=== PATIENT | female | born 1995 | race Caucasian/White ===

== ENCOUNTER 2019-08-04 18:07 | Outpatient (REF) | payer OTHER, SELFPAY ==
[2019-08-04 18:56] LABS: HCG Quant, Pregnancy 5 mIU/mL (1-3); TSH (W/Ref FT4) 1.92 uIU/mL (0.36-3.74)
[2019-08-06 11:33] LABS: Prolactin 65.3 ng/mL (See Table)
== END 2019-08-04 18:27 ==
LOC: LBN 18:07
PROVIDERS: Visit Provider Nurse Practitioner Family
DX: N92.6 Irregular menstruation, unspecified (principal)
CPT/HCPCS: 84146; 84443; 84702

== ENCOUNTER 2020-01-02 02:12 | Outpatient (CLI) | payer OTHER, SELFPAY ==
[2020-01-02 11:00] LABS: Kit/Specimen SENT
[2020-01-02 11:11] LABS: Abs Immature Grans 0.06 10^3/uL (0.0-0.06); Absolute Basophil Count 0.05 10^3/uL (0.0-0.2); Absolute Eosinophil Count 0.06 10^3/uL (0.0-0.7); Absolute Monocyte Count 0.48 10^3/uL (0.1-0.8); Absolute Neutrophil Count 8.41 10^3/uL (1.2-6.7); Basophils % 0.5; Eosinophils % 0.6; HGB 12.5 g/dL (11.2-15.7); Immature Grans % 0.6; Lymphocytes % 14.2; MCH 29.4 pg (27.0-33.0); MCHC 33.8 % (32.0-36.0); MCV 87.1 fL (80-95); MPV 9.9 fL (8.0-11.0); Monocytes % 4.5; Neutrophils % 79.6; Nucleated RBC 0 %; Platelet Count 262 10^3/uL (130-400); RBC 4.25 10^6/uL (3.93-5.22); RDW 12.9 % (11.7-14.6); RDW-SD 40.1 fL; WBC 10.56 10^3/uL (4.4-10.8)
[2020-01-02 12:27] LABS: TSH (W/Ref FT4) 2.27 uIU/mL (0.36-3.74)
[2020-01-03 14:29] LABS: Syphilis Total Ab w/Reflex Nonreactive (Nonreactive)
[2020-01-05 10:01] LABS: Hepatitis B Surface Ag Negative (Negative)
[2020-01-05 10:24] LABS: Varicella IgG Antibody Positive (See Note)
[2020-01-05 10:28] LABS: Rubella IgG Ab (UVM) Positive (See Note)
[2020-01-05 10:35] LABS: Hepatitis C Ab w Rflx HCV PCR Negative (Negative)
[2020-01-05 11:12] LABS: HIV-1/2 Ag & Ab Screen Negative (Negative)
[2020-01-09 18:35] LABS: Result Summary NEGATIVE; Specimen WB Whole Blood
[2020-01-09 18:41] LABS: Specimen WB Whole Blood
== END 2020-01-02 02:32 ==
PROVIDERS: Visit Provider Advanced Practice Midwife
DX: Z34.91 Encounter for supervision of normal pregnancy, unspecified, first trimester (principal); Z36.89 Encounter for other specified antenatal screening; Z11.59 Encounter for screening for other viral diseases; Z11.4 Encounter for screening for human immunodeficiency virus [HIV]; Z01.84 Encounter for antibody response examination; E22.1 Hyperprolactinemia
CPT/HCPCS: 36415; 81329; 86787; 86803; 86850; 86900; 86901; 87340; 87389; 81220; 84443; 85025; 86762; 86780

== ENCOUNTER 2020-01-02 12:11 | Outpatient (REF) | payer OTHER, SELFPAY ==
[2020-01-02 13:47] LABS: Tricyclic Antidepressants Negative (Negative)
[2020-01-02 13:54] LABS: *AMPHETAMINES SCREEN URINE Negative (Negative); *BARBITURATES SCREEN URINE Negative (Negative); *BENZODIAZEPINES SCREEN URINE Negative (Negative); Cannabinoids THC Negative (Negative); Cocaine Screen,Urine Negative (Negative); METHADONE URINE SCREEN Negative (Negative); OPIATES URINE SCREEN Negative (Negative)
[2020-01-05 15:09] LABS: Chlamydia Result Negative (Negative); GC Result Negative (Negative)
[2020-01-08 10:44] LABS: Buprenorphine Negative; Norbuprenorphine Negative
== END 2020-01-02 12:31 ==
LOC: LBN 12:11
PROVIDERS: Visit Provider Advanced Practice Midwife
DX: Z34.91 Encounter for supervision of normal pregnancy, unspecified, first trimester (principal); Z11.3 Encounter for screening for infections with a predominantly sexual mode of transmission
CPT/HCPCS: 80307; 87491; 87591; 87086

== ENCOUNTER 2020-01-16 09:51 | Outpatient (CLI) | payer OTHER, SELFPAY ==
[2020-01-16 21:48] LABS: Prolactin 35.9 ng/mL (See Table)
== END 2020-01-16 10:11 ==
PROVIDERS: Visit Provider Advanced Practice Midwife
DX: Z34.92 Encounter for supervision of normal pregnancy, unspecified, second trimester (principal)
CPT/HCPCS: 36415; 84146

== ENCOUNTER 2020-02-18 00:11 | Outpatient (CLI) | payer OTHER, SELFPAY ==
--- NOTE | 2020-02-18 07:30 | DI.US_ITS ---
EXAM: US OB 2-3 TRIMESTER CLINICAL HISTORY: routine pnc,Z34.90 TECHNIQUE: Ultrasound performed using standard protocol. COMPARISON: No exams were available for comparison FINDINGS: Ob ultrasound was performed utilizing 2nd trimester protocol. biometry is consistent with gestational age of 18 weeks 4 days and an EDC of 07/17/2020. Placenta is anterior with no evidence of placenta previa. There is visually a normal quantity of amniotic fluid. anomaly screen is within normal limits as per the attached checklist. heart rate was 150 BPM. IMPRESSION: DATA REPOSITORY:
== END 2020-02-18 00:31 ==
PROVIDERS: Visit Provider Advanced Practice Midwife
DX: Z34.92 Encounter for supervision of normal pregnancy, unspecified, second trimester (principal); Z3A.18 18 weeks gestation of pregnancy
CPT/HCPCS: 76805

== ENCOUNTER 2020-02-24 03:38 | Outpatient (CLI) | payer OTHER, SELFPAY ==
[2020-02-26 15:17] LABS: AFP 66.5 ng/mL; Cigarette smoking status non-Smoker; GA used in risk estimate Scan estimate; IVF Pregnancy No; Initial or repeat testing Initial testing; Insulin dependent diabetes No; Maternal Weight 160 lbs; Number of Fetuses 1; Physician Phone Number 802-748-7300; Prev Pregnancy w/NTD No; RECOMMENDED FOLLOW UP None.; Results Summary Normal risk
== END 2020-02-24 03:58 ==
PROVIDERS: Visit Provider Advanced Practice Midwife
DX: Z34.92 Encounter for supervision of normal pregnancy, unspecified, second trimester (principal); Z36.89 Encounter for other specified antenatal screening
CPT/HCPCS: 36415; 82105

== ENCOUNTER 2020-04-30 01:08 | Outpatient (CLI) | payer OTHER, SELFPAY ==
[2020-04-30 12:52] LABS: HCT 32.8 % (36.0-46.0); HGB 10.7 g/dL (11.2-15.7); MCH 28.8 pg (27.0-33.0); MCHC 32.6 % (32.0-36.0); MCV 88.2 fL (80-95); MPV 9.5 fL (8.0-11.0); Platelet Count 283 10^3/uL (130-400); RBC 3.72 10^6/uL (3.93-5.22); RDW 12.6 % (11.7-14.6); RDW-SD 40.8 fL; WBC 13.31 10^3/uL (4.4-10.8)
[2020-04-30 14:30] LABS: Glucose,1 Hr (Glucola) 167 mg/dL (80-140)
== END 2020-04-30 01:09 | disposition home or self-care (01) ==
PROVIDERS: Advanced Practice Midwife; Visit Provider Advanced Practice Midwife
DX: Z34.93 Encounter for supervision of normal pregnancy, unspecified, third trimester (principal); Z86.39 Personal history of other endocrine, nutritional and metabolic disease
CPT/HCPCS: 36415; 82950; 85027; 86850; 90384; 84146

== ENCOUNTER 2020-05-07 01:38 | Outpatient (CLI) | payer OTHER, SELFPAY ==
[2020-05-07 08:50] LABS: Glucose 1 Hour 147 mg/dL
[2020-05-07 10:48] LABS: Glucose 3 Hour 43 mg/dL
== END 2020-05-07 01:39 | disposition home or self-care (01) ==
LOC: LBO 01:38
PROVIDERS: Visit Provider Advanced Practice Midwife
DX: Z34.93 Encounter for supervision of normal pregnancy, unspecified, third trimester (principal)
CPT/HCPCS: 36415; 82951

== ENCOUNTER 2020-06-24 03:18 | Outpatient (CLI) | payer OTHER, SELFPAY ==
[2020-06-24 17:44] LABS: Prolactin 62.9 ng/mL (See Table)
== END 2020-06-24 03:19 | disposition home or self-care (01) ==
PROVIDERS: Visit Provider Advanced Practice Midwife
DX: R79.89 Other specified abnormal findings of blood chemistry (principal)
CPT/HCPCS: 36415; 84146

== ENCOUNTER 2020-06-24 17:11 | Outpatient (REF) | payer OTHER, SELFPAY ==
[2020-06-24 19:23] LABS: *AMPHETAMINES SCREEN URINE Negative (Negative); *BARBITURATES SCREEN URINE Negative (Negative); *BENZODIAZEPINES SCREEN URINE Negative (Negative); Cannabinoids THC Negative (Negative); Cocaine Screen,Urine Negative (Negative); METHADONE URINE SCREEN Negative (Negative); OPIATES URINE SCREEN Negative (Negative)
[2020-06-24 19:24] LABS: Tricyclic Antidepressants Negative (Negative)
[2020-06-30 07:58] LABS: Buprenorphine Negative ng/mL (Cutoff: 5.0); Norbuprenorphine Negative ng/mL (Cutoff: 2.5)
== END 2020-06-24 17:12 | disposition home or self-care (01) ==
LOC: LBN 17:11
PROVIDERS: Visit Provider Advanced Practice Midwife
DX: Z34.93 Encounter for supervision of normal pregnancy, unspecified, third trimester (principal); Z36.85 Encounter for antenatal screening for Streptococcus B; Z3A.36 36 weeks gestation of pregnancy
CPT/HCPCS: 80307; 87081

== ENCOUNTER 2020-07-05 11:50 | Observation (INO) | payer OTHER, SELFPAY ==
[2020-07-05 12:08] VITALS: BP 138/74; PULSE 97; TEMP 207.9; TEMP 97.7
--- OUTSIDE RECORDS SUMMARY | 2020-07-05 12:09 | XMS_ITS | Encounter Summary ---
:1995 Author Care Team Providers Name Role Phone Bing Gonzalez NP Primary Care Provider Unavailable Reason for Visit Visit Assessment and Plan 1. Seen by pharmacology associate We discussed routine c are, family risk factors, risk factors when applicable, maternal screen ings, screenings after , benefits of , support by la ctation consultants, WIC in the medical home, car seat inspection, male circumcision ( when applicable) with risks and benefits and lack of strong clinical evidence thereof , safe sleep, office structure, policies and hours and rare possibility of reschedule d appointments due to emergencies. Answered all questions. Discussion Note: None recorded.Patient educational handouts: No information available. Plan of Care Reminders Provider Appointments None ? ? recorded. Lab None ? ? recorded. Referral None ? ? recorded. Procedures None ? ? recorded. Surgeries None ? ? recorded. Imaging None ? ? recorded. Medications Name Start Date ? ? M- Plus 27 mg iron-1 mg tablet ? ? Medications Administered None recorded. Vitals None recorded. Results Lab Results None recorded. Allergies Code Code System Name Reaction Severity Onset Sulfa ? ? ? (Sulfonamide Antibiotics) Problems Name Status Onset Date Source ? Contraception Care Management Active ? Hi story Procedures Date Name Performed by ? 08/20/2002 Appendectomy Information not delores labwalter Vaccine List Vaccine Type Hep B, adolescent or pediatric 1994 1994 06/28/1995 HPV, quadrivalent 05/16/2007 07/18/2007 11/18/2007 MMR 09/11/1995 09/09/1998 Td (adult), adsorbed 05/29/2018?0.5 mL Tdap 03/29/2006 varicella 11/20/1996 05/16/2007 Social History Tobacco Smoking Status Never Smoker Most Recent Tobacco Use Screening 07/10/2019 Alcohol intake None Drug Use N Occupation hygentist Family History Relation Problem Onset Age of Age Notes Father No current problems (No Information) N/A (No Notes) or disability Mother No current problems (No Information) N/A (No Notes) or disability Functional Status Unknown. Past Encounters 06/17/2020 Seen by Earth Science Professor Dipti Franco MD: [address] [place] [phone], Ph. History of Present Illness Note: <p>Mother: Dipti Gleason</p><p>Father: Marcin Gleason- </p><p>Have you had any recent travel? {{Yes No*}}
Have you had any visitors at your home from out of state?{{Yes No*}}
Have you been in contact with anyone testing positive for Covid? {{Yes No*}}< /p><p>Due the end of June. [facility] López for PCP.</p><p>
</p&gt ;<p>
</p><p>[facility]</p><p>delivering at [facility] </p><p>35 weeks GA</p><p>girl</p><p>first child for both</p><p>BF: yes</p><p>planning to vaccinate</p><p>
</p><p>Dipti:dental hygiene in [place]</p><p>Marcin: concrete</p><p>
</p><p>one miscarriage start of last year</p><p>MOB had prolactinoma, was on meds but not currently</p><p>
</p><p>FOB is healthy</p><p>Denies Fhx of illness, chronic d/o, genetic conditions</p><p>Denies etoh, drug or tobacco use</p ><p>
</p>Review of Systems: ROS as noted in the HPI Review of Systems None recorded. Physical Exam None recorded.
--- OUTSIDE RECORDS SUMMARY | 2020-07-05 12:09 | XMS_ITS ---
:1995 Author Care Team Providers Name Role Phone FLORIAN OSORIO NP Primary Care Provider Unavailable Allergies Code Code System Name Reaction Severity Status Onset Sulfa ? ? Active ? (Sulfonamid e Antibiotics ) Medications Name Status Start Date Stop Date ? ? Camrese Lo 0.10 mg-20 mcg (84)/10 Completed ? 01/17/2018 mcg(7) tablets,3 month dose pack cefadroxil 500 mg capsule Completed ? 2017 cephalexin 500 mg capsule Completed ? 2017 clindamycin 2 % vaginal cream Completed ? Diflucan 150 mg tablet Completed ? 9 Take 1 tablet every day by oral route. M- Plus 27 mg iron-1 mg tablet Active ? Not available nitrofurantoin Completed ? 01/17/2018 monohydrate/macrocrystals 100 mg capsule ondansetron HCl 4 mg tablet Completed ? 08/24 Ortho Tri-Cyclen (28) 0.18 mg(7)/0.215 mg(7)/0.25 mg(7)-35 m cg tablet Completed ? 07/10/2019 1 Tablet: daily oxycodone-acetaminophen 5 mg-325 mg Completed ? 01/17/2018 tablet phenazopyridine 200 mg tablet Completed ? Active ? Not available Problems Name Status Onset Date Source ? Discharge from Nipple Unknown ? History Hypertrophy of Clitoris Unknown ? History Genitourinary Symptoms Unknown ? History Exposure to Blood And/or Body Fluid Unknown ? History Contraception Care Management Active ? Hi story Gynecologic Examination Unknown ? History SNOMED CT Concept Unknown ? History Vagina Finding Unknown ? History Disorder of Ear Unknown ? History Procedures Date Name Performed by ? 08/20/2002 Appendectomy Information not avai lable 07/24/2019 MRI, Brain + Pituitary, W/wo [facility] Radiology (Internal) Contrast [address] [place] [address] (Work Place) Results Lab Results Date Name Specimen Result Interpretation Description Value Range Status Address ? 07/22/2019 Prolactin, S ? Prolactin 58.1 NG/mL see tabl e Final [place] Serum NG/mL [facility] L ab (Internal) : [address] 07/10/2019 Thyroid S ? Tsh 2.13 0.47-4.68 Final No rth [place], u[IU]/mL u[IU]/mL Coun try Serum Hospital L ab (Internal) : [address] t 07/10/2019 Prolactin, S ? Prolactin 51.5 NG/mL see tabl e Final [place] Serum NG/mL [facility] Hospital L ab (Internal) : [address] 09/09/2018 Chlamydia - Specimen see ? Final [place] Trachomatis Description comments Country + [facility] Lab Gonorrhea (Dinkey Mechanic al): rRNA, QL, [address] ? ? - Chlamydia negative ? Final Nort h Result [facility] L ab (Internal) : [address] ? ? - GC Result negative ? Final Nort [facility] L ab (Internal) : [address] 09/09/2018 Pap Test, MISC - Pap see report ? Final [place] [facility] : [address] ? ? MISC - Report results ? Final [place] below [facility] L ab (Internal) : [address] 01/28/2018 Hepatitis B S - Hepatitis negative negative Final [place] Virus [facility] Ag, S Co untry E Ag + Ab Hospita l Lab Panel, Serum (Int ernal): [address] ? ? S - Hbe negative negative Final [place] Antibody, S Count Hospital L ab (Internal) : [address] 01/28/2018 Hepatitis C S - Hep C Ab W negative negat F inal [place] Virus Ab, Rfx PCR Countr [facility] Hospital L ab (Internal) : [address] 01/28/2018 HIV (1+2) Ab S - HIV 1/2 negative negat Fin al [place] Screen, Antigen and Coun [facility] Serum Antibody Hospital Lab (Internal) : [address] 01/28/2018 Hepatic S - Tbil 0.3 mg/dL 0.2-1.3 Final N orth Function mg/dL Country Panel, Serum Hosp ital Lab (Internal) : [address] ? ? S - Dbil 0.3 mg/dL 0.0-0.3 Final [place] mg/dL [facility] L ab (Internal) : [address] ? ? S Low Alp 40 U/L 50-136 Final North U/L [facility] L ab (Internal) : [address] ? ? S - Alt (Sgpt) 30 U/L 9-52 U/L Final [facility] L ab (Internal) : [address] ? ? S High Ast (Sgot) 59 U/L 14-36 U/L Final No rth [facility] L ab (Internal) : [address] ? ? S - Ggt <15 U/L 12-43 U/L Final [facility] L ab (Internal) : [address] ? ? S - Tp 7.4 g/dL 6.3-8.2 Final [place] g/dL [facility] L ab (Internal) : [address] ? ? S - Alb 4.3 g/dL 3.5-5.0 Final [place] g/dL [facility] L ab (Internal) : [address] 07/22/2017 Culture, UR ? Final microbiolo ? Final [place] Urine gy results [facility] L ab (Internal) : [address] 07/22/2017 sensitivitie MISC ? Sens* ? ? Final [place] s[I] [facility] L ab (Internal) : [address] 07/22/2017 Urinalysis, UR ABNORMA UA-WBC 10-25 0-3 [hpf] Herbert Meyer Microscopic L [hpf] Count Hospital L ab (Internal) : [address] ? ? UR ? UA-RBC 0-2 [hpf] 0-2 [hpf] Final [facility] L ab (Internal) : [address] ? ? UR ABNORMA UA-bacteria few [hpf] none seen Ángela Navarro L [hpf] [facility] L ab (Internal) : [address], [place] ? ? UR ? UA-epitheli none seen none seen Final [place] al [hpf] [hpf] [facility] ab (Internal) : [address] ? ? UR ? UA-mucus none seen none seen Final N orth [hpf] [hpf] [facility] ab (Internal) : [address] 07/22/2017 Urinalysis, UR ? UA-color straw pale Final [place] Dipstick, yellow [facility] Reflex Micro Hosp ital Lab (Internal) : [address] ? ? UR ? UA-appear clear clear Final [facility] ab (Internal) : [address] ? ? UR ? UA-spec <=1.005 1.003-1.0 Final Nort h Grav 35 [facility] ab (Internal) : [address] ? ? UR ? UA-pH 6.5 [pH] 4.6-8.0 Final [place] [pH] [facility] ab (Internal) : [address] ? ? UR ABNORMA UA-leuk Est moderate negative Final [facility] ab (Internal) : [address], [place] ? ? UR ? UA-nitrite negative negative Final N orth [facility] ab (Internal) : [address] ? ? UR ? UA-prot negative negative Final [facility] ab (Internal) : [address] [place] ? ? UR ? UA-gluc negative negative Final [facility] ab (Internal) : [address] [place] ? ? UR ? UA-ketone negative negative Final No rth [facility] L ab (Internal) : [address] [place] ? ? UR ? UA-urobil normal normal Final [facility] ab (Internal) : [address] [place] ? ? UR ? UA-bili negative negative Final [facility] ab (Internal) : [address] [place] ? ? UR ABNORMA UA-blood large negative Final [facility] ab (Internal) : [address] 02/23/2017 Urinalysis, UR ? UA-color yellow pale Final [place] Complete [facility] ab (Internal) : [address] ? ? UR ? UA-appear clear clear Final [facility] ab (Internal) : [address] ? ? UR ? UA-spec 1.010 1.003-1.[address] ab (Internal) : [address] ? ? UR ? UA-pH 7.0 [pH] 4.6-8.0 Final [place] [pH] [facility] ab (Internal) : [address] ? ? UR ? UA-leuk Est negative negative Final [facility] ab (Internal) : [address] ? ? UR ? UA-nitrite negative negative Final [facility] ab (Internal) : [address] ? ? UR ? UA-prot negative negative Final [facility] ab (Internal) : [address] ? ? UR ? UA-gluc negative negative Final [facility] ab (Internal) : [address] ? ? UR ? UA-ketone negative negative Final No rth [facility] ab (Internal) : [address] ? ? UR ? UA-urobil normal normal Final [facility] ab (Internal) : [address] ? ? UR ? UA-bili negative negative Final [facility] ab (Internal) : [address] ? ? UR ABNORMA UA-blood moderate negative Final No rth [facility] ab (Internal) : [address] ? ? UR ? UA-WBC 0-3 [hpf] 0-3 [hpf] Final [facility] ab (Internal) : [address] ? ? UR ? UA-RBC 0-2 [hpf] 0-2 [hpf] Final [facility] ab (Internal) : [address] ? ? UR ? UA-bacteria rare [hpf] none seen Ángela Navarro [hpf] [facility] ab (Internal) : [address] ? ? UR ? UA-epitheli rare [hpf] none seen Ángela Navarro al [hpf] [facility] ab (Internal) : [address] ? ? UR ? UA-mucus none seen none seen Final N orth [hpf] [hpf] [facility] (Internal) : [address] ? ? UR ABNORMA Yeast, UA rare [hpf] none seen Final North L [hpf] [facility] (Internal) : [address] 01/12/2017 CT RNA, MISC ? Specimen vaginal ? Final N orth Qual, PCR, Description C ountry Unspecified Hospi alex Lab Specimen (Interna l): [address] ? ? MISC ? Chlamydia negative ? Final Nort h Result [facility] (Internal) : [address] ? ? MISC ? GC Result negative ? Final Nort h [facility] (Internal) : [address] Past Encounters 06/17/2020 Seen by Water Carter Dipti Franco MD: [address] [place] [phone], Ph. 07/10/2019 Oligomenorrhea; Galactorrhea Not Associa cathleen with Childbirth Rocio Rivas, JOHANN: [address] [place] [phone], Ph. Social History Tobacco Smoking Status Never Smoker Vaccine List Vaccine Type Hep B, adolescent or pediatric 1994 1994 06/28/1995 HPV, quadrivalent 05/16/2007 07/18/2007 11/18/2007 MMR 09/11/1995 09/09/1998 Td (adult), adsorbed 05/29/2018?0.5 mL Tdap 03/29/2006 varicella 11/20/1996 05/16/2007 Plan of Care Reminders Provider Appointments None ? ? recorded. Lab None ? ? recorded. Referral None ? ? recorded. Procedures None ? ? recorded. Surgeries None ? ? recorded. Imaging None ? ? recorded. Vitals 07/10/2019 09:20AM Office 20 Height 161.29 cm 09/09/2018 09:00AM E 30 Height Weight BMI Blood Pressure 161.29 cm 65.95 kg 25.4 kg/m2 112/62 mm[Hg] 03/16/2017 Blood Pressure 100/58 mm[Hg] 01/12/2017 Height Weight 161.29 cm 64.36 kg 03/10/2016 Height Weight Blood Pressure 161.29 cm 61.69 kg 100/62 mm[Hg] 02/21/2016 Blood Pressure 110/80 mm[Hg] 12/31/2015 Height Weight Blood Pressure 161.29 cm 61.14 kg 96/58 mm[Hg] 05/15/2012 Height Weight Blood Pressure 160.02 cm 58.97 kg 114/60 mm[Hg]
--- NOTE | 2020-07-05 12:17 | PDOC.NST_ITS ---
Date of service: 07/05/20 Time of Service: 12:17 NST Evaluation Reason for NST Reasons for Nonstress Test: OTHER, SEE COMMENT Gestational Age Gestational Age in Weeks and Days: 37 Weeks and 6Days Test and Monitor Explained Test/Monitor Explained: Test Explained, Monitor Explained and Patient Verbalized Understanding Vital Signs Blood Pressure: 138/74 Pulse: 97 Temperature: 207.9 F NST Information Date on Monitor: 07/05/20 Time on Monitor: 12:09 Date off Monitor: 07/05/20 NST Interventions: PO Hydration NST Evaluation Patient States Movement: Present Variability: Moderate 6-25 bpm Accelerations: 15x15 Decelerations: None NST Results: Reactive Note NST Note Note: Dipti Gleason presented for NST and exam for dilation due to irregular contractions starting this morning. No LOF or bloody show. Baby is active. States pressure is often but contractions are only noted every hour or so. Patient prefer to go home and return with more frequent or painful contractions. Is aware of PO hydration and movement awareness. NST is reactive. [place] demonstrates contractions but patient is unaware of these essence zayas contractions. VE 1/70/-3 posterior and soft. Has appointment in office on Sunday this week.GIBRAN NST Reviewed and Verified by: Kylie Hauser
[2020-07-05 12:21] VITALS: BP 138/74; PULSE 97; TEMP 207.9; TEMP 97.7
--- NOTE | 2020-07-05 12:23 | DSE_ITS ---
Date of service: 07/05/20 Time of Service: 12:23 DS: Diagnosis Discharge Diagnosis (1) Irregular uterine contractions: Start date: 07/05/20 Start time: 12:24 Status: Acute Asessment and Plan: 07/05/20: started to notice contraction every hour or so starting at 0500 am. No bleeding or leaking of fluid. was at work and co- workers encouraged her to be seen. (2) : Status: Acute Discharge Plan Disposition Patient Disposition: HOME Condition: Good Discharge Details Reason For Visit: RULE OUT LABOR Admit Date/Time: 07/05/20 11:50 Admit Provider: Kylie Hauser Attending Provider: Kylie Hauser Primary Care Provider: Unknown,Unknown Hospital Course Hospital Course: Had reactive NST, repairer typewriter did VE to assess for labor, posterior and soft. No bleeding, leaking or pain reported at this time. Patient is not noticing contractions more than every hour. Home Meds and New Rx's Prescriptions: Continued ferrous sulfate 325 mg (65 mg iron) tablet 325 mg PO DAILY Qty: 60 RF: 4 PNV #[id number] 30 mg iron-10 mg iron-1 mg capsule 1 cap PO DAILY Qty: 90 RF: 3 Discharge Instructions Instructions: Early Labor Signs (GEN) Activity:: Activity as Tolerated Equipment/Supplies:: No Equipment Needed Diet:: As Tolerated Discharge Orders Discharge Orders: Discharge Order (Routine); Ordered 07/05/20 Ordered By: Kylie Hauser OB:DS Summary Summary Procedures: patient at 37w6d not in labor, reactive NST. Contraception Discussed Contraception Discussed: No (N/A), Status at Discharge Functional status at discharge: independent ambulation Overall status at discharge: patient is back to baseline Mental Status: mental status grossly normal Speech and Movement: speech and movement normal Mood: congruent mood Affect: normal affect Time Spent with Patient providing and/or coordinating discharge services: Less than 30 minutes Quality: AMI Clinical Trial Participant: No Exam Physical Exam Vital Signs Reviewed: Yes Constitutional Constitutional: no acute distress Comments: resting comfortably in bed, does not need to breathe through contractions, denies acute pain. Respiratory Exam Respiratory Exam: Normal Cardiovascular Exam Cardiovascular Exam: Normal Fundal Exam Comment: gravid, full term, fundus soft and non tender.KH Rectal Exam Rectal Exam: Not Done Extremities Exam Extremity Exam: Normal Back/Spine/Pelvis Exam Back Exam: Not Done Skin Exam Skin Exam: Not Done Neurological Exam Neurological Exam: Normal Psychiatric Exam Psychiatric Exam: Normal REPLACED BY [facility] Medical History Complete miscarriage Elevated prolactin level Oligomenorrhea Pituitary microadenoma Positive test at early stage Surgical History History of appendectomy S/P breast augmentation Family History Father Well adult Mother Well adult Paternal Grandmother Breast cancer Social History Smoking/Tobacco Use Status: Never Second Hand Exposure: No Smoking risk assessment performed?: Yes History History 2 Para 0 Hx # Term Pregnancies 0 Multiple births 0 Hx # Pregnancies 0 Ectopic pregnancies 0 AB induced 0 Hx Number of Living Children 0 AB spontaneous 1 Past Pregnancies Del. Date GA/Weeks # Outcome Route Wgt Sex Labor Lgth Anesthes ia Location Prov Complic Unknown 4 Unsuccessful Delivery Date: Biochemical Norma Miguel
[2020-07-05 13:06] VITALS: TEMP 36.5
== END 2020-07-05 13:10 | disposition home or self-care (01) ==
PROVIDERS: Admitting Provider Advanced Practice Midwife; Visit Provider Advanced Practice Midwife
DX: O47.1 False labor at or after 37 completed weeks of gestation (principal); Z3A.37 37 weeks gestation of pregnancy
CPT/HCPCS: 59025; G0378

== ENCOUNTER 2020-07-16 10:40 | Outpatient (CLI) | payer OTHER, SELFPAY ==
[2020-07-16 10:51] VITALS: BP 122/72; PULSE 80; TEMP 36.7
[2020-07-16 11:09] VITALS: BP 122/72; PULSE 80
[2020-07-16 11:34] LABS: ROM Plus Negative
--- NOTE | 2020-07-16 11:51 | W.OBNST ---
Date of service: 07/16/20 Time of Service: 11:51 NST Evaluation Reason for NST Reasons for Nonstress Test: OTHER, SEE COMMENT Reason for NST Other: For ROM Plus Gestational Age Gestational Age in Weeks and Days: 39 Weeks and 3Days Test and Monitor Explained Test/Monitor Explained: Test Explained, Monitor Explained and Patient Verbalized Understanding Vital Signs Blood Pressure: 122/72 Pulse: 80 Temperature: 98.1 F NST Information Date on Monitor: 07/16/20 Time on Monitor: 10:50 NST Interventions: PO Hydration Contraction Frequency: 1-7 min NST Evaluation Patient States Movement: Present FHR Baseline: 135 Variability: Moderate 6-25 bpm Accelerations: 15x15 Decelerations: None NST Results: Reactive Note NST Note Note: Dipti has been feeling wet x 24 hours and wearing a panty liner. ROM plus is negative. Signs of labor and SROM reviewed. Dipti met with toribio SINHA to discuss issues. NST Reviewed and Verified by: Kylie Mendoza
[2020-07-16 11:52] VITALS: BP 122/72; PULSE 80; TEMP 36.7
== END 2020-07-16 12:09 | disposition home or self-care (01) ==
LOC: BCD 10:40 → OBS 10:45
PROVIDERS: Visit Provider Advanced Practice Midwife
DX: Z03.71 Encounter for suspected problem with amniotic cavity and membrane ruled out (principal); Z3A.39 39 weeks gestation of pregnancy
CPT/HCPCS: 59025; 84112

== ENCOUNTER 2020-07-18 07:45 | Inpatient (IN) | payer OTHER, SELFPAY ==
[2020-07-18] VITALS (32 sets, daily range): BP systolic 105–131; BP diastolic 58–82; PULSE 78–131; RESP 14–18; TEMP 36.3–37; O2SAT 96–100
--- NOTE | 2020-07-18 09:42 | W.PM.OBHPL1 ---
Date of service: 07/18/20 Time of Service: 09:42 Assessment and Plan Assessment and plan (1) Rupture of membranes with clear amniotic fluid: Status: Acute Assessment and plan: A: 24 yo G1 @ 39 wks, SROM clear confirmed 0500 Early labor/latent phase GBS neg, low risk for SD/PPH outside of primip status P: Admit to BC, CBC, T&S, COVID swab Discussed indications for IOL in PROM with pt Will manage expectantly at this time Pt plans epidural when uncomfortable Reassess for spont labor vs indicated IOL in 3-4 hrs [employer] ANALYST inhouse now and notified Dr. Yusuf on-call for consultation prn (2) 39 weeks gestation of : Status: Acute OB-HPI Labor/Delivery History of Present Illness Reason for Visit: R/O LABOR AND SROM AT TERM Chief Complaint: Suspected Rupture of Membranes , Associated Signs and Symptoms of Suspected ROM: woke up wet @ 0500, through her clothing and into her bedding. Trickling has continued since then.. FLAKITA Calculator Estimated Delivery Date Method Current WG Current Estimate 07/20/20 Ultrasound #1 39w 5d History of Present Expected Delivery Route/Plan - CNM FOB/ - Marcin Gleason BG- Sabra GBS negative @ 36 wks Plans epidural with active labor, may use tub prior to that Specific Issues/Plan 1. H/O hyperprolactinemia due to pituitary microadenoma. Needs Prolactin levels drawn q trimester as per Dr. Miguel. Draw 1st trimester prolactin level @ 2nd pnv. 1a. Prolactin 65.3 pre- 1b. Prolactin 35.9 @ 14 wks, consult: repeat @ 28 & 36 wks if not symptomatic. 1c. Prolactin 36 @ 28 wks 1c. Prolactin 62.9 @ 36 wks, nml level 2. No PA required for optional AP screening 2a. Peterman result is low risk x3, female fetus 2b. CF and SMA negative 3. Rh neg, RhoGam @ 28 wks done 04/30/20 4. Elevated [id number]=033, 3 hr GTT nml x4 5. Had saline breast implants age 20, desires to breastfeed, plan LC consult prior to delivery 5a. Met with Migdalia 07/16 Assessment: History Reviewed & Current Informed Consent Informed Consent: Induction of Labor (Discussed PROM at term and management options.) and Risk,Benefits,Alternatives Discussed Review of Systems All systems reviewed & are unremarkable except as noted in HPI and below Constitutional Constitutional: Reports system reviewed and no additional complaints, except as documented Cardiovascular Cardiovascular: Reports system reviewed and no additional complaints, except as documented Respiratory Respiratory: Reports system reviewed and no additional complaints, except as documented Gastrointestinal Gastrointestinal: Reports system reviewed and no additional complaints, except as documented Genitourinary Genitourinary: Reports system reviewed and no additional complaints, except as documented and Reports as per HPI Musculoskeletal Musculoskeletal: Reports system reviewed and no additional complaints, except as documented Integumentary/Breasts Skin/Breast: Reports system reviewed and no additional complaints, except as documented Neurologic Neurologic: Reports system reviewed and no additional complaints, except as documented Psychiatric Psychiatric: Reports system reviewed and no additional complaints, except as documented Endocrine Endocrine: Reports system reviewed and no additional complaints, except as documented Hematologic/Lymphatic Hematologic/Lymphatic: Reports system reviewed and no additional complaints, except as documented COUNT INCLUDES THE [facility] Medical History (Updated 07/18/20 @ 09:49 by Marleny Mckenzie) Complete miscarriage Elevated prolactin level Galactorrhea Irregular uterine contractions Missed menses Oligomenorrhea Pituitary microadenoma Positive test at early stage Surgical History History of appendectomy S/P breast augmentation Family History Father Well adult Mother Well adult Paternal Grandmother Breast cancer Social History Smoking/Tobacco Use Status: Never Second Hand Exposure: No Smoking risk assessment performed?: Yes Alcohol Intake: never Drug use: Never Substance use type: does not use History History 2 Para 0 Hx # Term Pregnancies 0 Multiple births 0 Hx # Pregnancies 0 Ectopic pregnancies 0 AB induced 0 Hx Number of Living Children 0 AB spontaneous 1 Past Pregnancies Del. Date GA/Weeks # Outcome Route Wgt Sex Labor Lgth Anesthesia Location Prov Complic Unknown 4 Unsuccessful Delivery Date: Biochemical Norma Miguel Allergies and Home Medications Allergies Allergy/AdvReac Type Severity Reaction Status Date / Time Sulfa (Sulfonamide Allergy Severe Hives Verified 07/16/20 10:26 Antibiotics) Home Medications Medication Instructions Recorded Confirmed Type vitamin#30 30 mg iron-10 1 cap PO DAILY #90 cap 02/19/21 02/19/21 Rx mg iron-folic acid 1 mg-omg3 capsule ferrous sulfate 325 mg (65 mg 325 mg PO DAILY #60 tab 07/02/20 07/02/20 Rx iron) tablet Exam Physical Exam Vital signs: Temp Pulse Resp BP Pulse Ox 98.1 F 112 H 16 122/82 97 07/18/20 09:22 07/18/20 09:22 07/18/20 09:22 07/18/20 09:22 07/18/20 09:22 Vital Signs Reviewed: Yes Constitutional Constitutional: no acute distress Detailed Labor and Delivery Exam Dilation: 3 Effacement (%): 80 station: -1 Cervix position: anterior Consistency: soft Lin Score: Cervical Points Exam 0 1 2 3 Dilation Closed 1-2cm 3-4 cm 5-6cm Effacement 0-30% 40-50% 60-70% 80% Consistency Firm Medium Soft Station -3 -2 -1,0 +1,+2 Position Posterior Mid Anterior LIN Score(Cervical Ripeness Score): 11 Amniotic Membrane Status: Ruptured Rupture Method: Spontaneous Amniotic Fluid: Clear Nitrazine: Positive Ferning: Absent Contraction Frequency(min): irregular, q 5-8 minutes Contraction Duration(sec): 30-50 Contraction Intensity: Mild Fetus A Heart Rate Baseline: 140 Monitor Accelerations: 15 X 15 Monitor Decelerations: None Variability: Moderate (6-25 BPM) Presentation: Cephalic Categories: Category I Est. Weight: 7 lb 14.986 oz Est. Weight: 3600 gms Date of Membrane Rupture: 07/18/20 Time of Membrane Rupture: 04:35 HEENT Exam HEENT Exam: Normal Neck Exam Neck Exam: Normal Chest/Brest/Axilla Exam Chest Exam: Normal Breast Exam Breast Exam: Normal Respiratory Exam Respiratory Exam: Normal Cardiovascular Exam Cardiovascular Exam: Normal Abdominal Exam Abdominal Exam: Normal (Gravid S=D) Rectal Exam Rectal Exam: Normal Exam Exam: Normal Extremities Exam Extremities Exam: Normal Back/Spine/Pelvis Exam Back Exam: Normal Pelvis Adequate: Yes Skin Exam Skin Exam: Normal Neurological Exam Neurological Exam: Normal Psychiatric Exam Psychiatric Exam: Normal Results Results Group Beta Strep: Negative Blood Type: O- Rubella Status: Immune Varicella Immunity: Immune Risk Assessment Risk for Shoulder Dystocia Historical/Initial OB: NEGATIVE FOR: Pelvic Abnormality, Pre- BMI>30, Previous Shoulder Dystocia or Previous Macrosomia 40 Weeks: NEGATIVE FOR: EFW> 4500 gms, Maternal Weight Gain >40lb or Post Dates Increased Risk?: No Counselin01/02/20 iob low risk al Delivery Plan @ 36wks: spont labor, Risk for Pre-Eclampsia Daily Dose ASA Indicated: No Date Initiated/Initials: 01/02/20 al Yes, if one or more: NEGATIVE FOR: Hx Pre-E/Gest HTN, Chronic HTN, Multiple Gestation, Pre-gestational DM, Renal Disease, Systemic Lupus or APA Syndrome Yes, if 2 or more: POSITIVE FOR: Nulliparity; NEGATIVE FOR: Age>= 35 yrs, >10yr btwn pregnancies, BMI>30, ethinicty, Mother/Sister w/ Pre-E or Previous IUGR Risk for Post- Hemorrhage Initial: NEGATIVE FOR: Multiple Gestation, Previous PPH, Known Clotting Deficiency, Grand Multiparity or Anticoagulation At Risk?: No Risks Reviewed Risks Reviewed Upon Admission: Yes
[2020-07-18 09:49] LABS: Source Nasal/Nares
[2020-07-18 09:53] LABS: HCT 36.6 % (36.0-46.0); HGB 11.9 g/dL (11.2-15.7); MCH 28.7 pg (27.0-33.0); MCHC 32.5 % (32.0-36.0); MCV 88.4 fL (80-95); MPV 9.7 fL (8.0-11.0); Platelet Count 239 10^3/uL (130-400); RBC 4.14 10^6/uL (3.93-5.22); RDW 15.6 % (11.7-14.6); RDW-SD 50.1 fL; WBC 12.13 10^3/uL (4.4-10.8)
[2020-07-18 10:29] LABS: COVID-19 PCR Negative (Negative)
--- NOTE | 2020-07-18 12:44 | W.PM.OBNL1 ---
Date of service: 07/18/20 Time of Service: 12:44 Pelvic Exam Dilation: 4.5 Effacement (%): 90 station: -1 Cervix Position: anterior Consistency: soft Vaginal Exam Presentation: Cephalic Fetus A Monitor: Doppler Heart Rate Baseline: 140 Presentation: Cephalic FHR Rhythm: Regular Characteristics: Normal Accelerations: Present Amniotic Membrane Status: Ruptured Rupture Method: Spontaneous Amniotic Fluid: Clear Date of Membrane Rupture: 07/18/20 Time of Membrane Rupture: 05:00 Assessment and Plan Assessment and plan (1) Rupture of membranes with clear amniotic fluid: Status: Acute Assessment and plan: A: PROM at term, early labor with progression P: Will initiate IV access in preparation for eventual planned epidural Anticipate (2) 39 weeks gestation of : Status: Acute Objective Abnormal lab results 07/18/20 Range/Units 09:35 WBC 12.13 H (4.4-10.8) 10^3/uL RDW 15.6 H (11.7-14.6) % Temp Pulse Resp BP Pulse Ox 97.9 F 93 H 14 112/78 97 07/18/20 12:00 07/18/20 12:00 07/18/20 12:00 07/18/20 12:00 07/18/20 09:22 Laboratory Results WBC 12.13 10^3/uL (4.4-10.8) H 07/18/20 09:35 RBC 4.14 10^6/uL (3.93-5.22) 07/18/20 09:35 Hgb 11.9 g/dL (11.2-15.7) 07/18/20 09:35 Hct 36.6 % (36.0-46.0) 07/18/20 09:35 MCV 88.4 fL (80-95) 07/18/20 09:35 MCH 28.7 pg (27.0-33.0) 07/18/20 09:35 MCHC 32.5 % (32.0-36.0) 07/18/20 09:35 RDW 15.6 % (11.7-14.6) H 07/18/20 09:35 Plt Count 239 10^3/uL (130-400) 07/18/20 09:35 MPV 9.7 fL (8.0-11.0) 07/18/20 09:35 COVID-19 Source Nasal/nares 07/18/20 09:40 SARS-CoV-2 (PCR) Negative (Negative) 07/18/20 09:40 Patient ABO/Rh O Negative 07/18/20 09:35 Antibody Screen Negative 07/18/20 09:35 Vital Signs Reviewed: Yes Objective Narrative Objective Narrative: Pt has ambulated, used physioball and the floor mat and cub for H&K position, Coping well, calm and relaxed, reporting increasing back pain Afebrile and normotensive, admission labs nml/neg SVE for palpable progress to 4-5/90% with forebag, vtx -1 Intermittent auscultation has been reassuring FOB bedside to offer support Subjective Patient Reports: No new Complaints
[2020-07-18] MEDS: Normal Saline Flush 10 ML SYR IVP (13:16)
[2020-07-18] MEDS: Lactated Ringers 1,000 ML 125 ML IV ×2 (13:16→16:05)
[2020-07-18] MEDS: FentaNYL/ROPIvacaine 2 mcg/ml and 0.1% 200 ML CADD Cassette EP (14:46)
--- NOTE | 2020-07-18 15:39 | W.PM.OBNL1 ---
Date of service: 07/18/20 Time of Service: 15:39 Informed Consent Informed Consent: Regional Anesthesia and Risk,Benefits,Alternatives Discussed Pelvic Exam Dilation: 6 Effacement (%): 100 station: 0 Consistency: soft Contractions Monitor Mode: External Contraction Frequency(min): every 2-3 minutes Contraction Duration(sec): 50-70 Intensity: Moderate Fetus A Monitor: External (US) Heart Rate Baseline: 140 Presentation: Cephalic Variability: Moderate (6-25 BPM) Categories: Category I Accelerations: 15 X 15 Decelerations: None Amniotic Membrane Status: Ruptured Assessment and Plan Assessment and plan (1) Rupture of membranes with clear amniotic fluid: Status: Acute Assessment and plan: A: active labor, epidural anesthesia P: Cont EFM Anticipate (2) 39 weeks gestation of : Status: Acute Objective Vital Signs Reviewed: Yes Objective Narrative Objective Narrative: Epidural placed at 1500, pt has good relief Forebag spontaneously ruptured during anesthesia placement SVE 6/100% vtx 0, clear fluid Category 1 tracing Subjective Interval history since last seen: Contractions more painful, req, epidural at 1400 Interventions Pain Management Interventions: Epidural Epidural Placed by:: Anup Yo .
[2020-07-18] MEDS: Oxytocin/Normal Saline 30 UNIT/500 ML BAG 95 UNITS IV (18:40)
[2020-07-18] MEDS: Methylergonovine 0.2 MG/ML VIAL (18:40)
--- NOTE | 2020-07-18 19:24 | OBVDS_ITS ---
Date of service: 07/18/20 Time of Service: 19:24 OB Labor/ Delivery Information Baby A Delivery Delivery Method: Spontaneaous Presentation: Cephalic Cephalic Position: Vertex Vertex Position: Right Occipital Anterior Breech Position: N/A Cord Description-Baby A: 3 Vessels Amniotic Fluid: Clear Estimated Blood Loss: 450 Delivery Outcome: Liveborn Infant Transferred: Remains with Mother Note: Pt resting well after epidural placed, category 1 tracing, found to be fully dilated @ +2 station when she reported increased pelvic pressure. 2nd stage huddle held, plan to continue resting in LLP, encourage to void on bedpan, allow passive descent. One hour later, repeat huddle held, vtx had descended to +3 and pt was involuntarily bearing down with contractions. Excellent maternal efforts proceeded to result in over attempted intact perineum, shoulders came easily and vigorous female infant placed on mother's abd. Pitocin infusion begun, cord clamped at 5 minutes, cut by FOB, cord blood collected, Patel pl acenta intact with 3VC, persistent trickling of lochia noted for which 0.2 mg Methergine given IM. 2nd degee lac repaired with 3.0 Vicryl, minor though continuing persistent trickle noted, straight cath of bladder yielded 500 ml yellow urine with subsequent decrease in vaginal bleeding. Fundus firm below umbilicus, sharps and sponge counts correct, excellent family bonding observed. Apgars 8/9, weight 3705 gms. Providers Nurse Briefcase Sewer: Marleny Mckenzie Universal Grinder Tool: Anup Yo Nurse: Eli Galloway Nurse: Stephon Taveras Labor/Delivery Information Number of Babies in Womb: 1 Steroids Given: None Reason Steroids Not Administered: N/A Group Beta Strep: Negative Antibiotics Administered: No Rubella Status: Immune Blood Type: O- Varicella Immunity: Immune Maternal Complications: None Shoulder Dystocia: No Stages of Labor Onset of Labor Date: 07/18/20 Onset of Labor Time: 08:50 Complete Dilatation Date: 07/18/20 Complete Dilatation Time: 16:52 Labor - Stage 1 Duration: 0 minutes ROM Baby A: 07/18/20 ROM Baby A: 04:35 ROM Total Time- Baby A: [id number] Infant Delivery Date-Baby A: 07/18/20 Delivery Time-Baby A: 18:33 Labor Stage 2 Duration: 1 hours and 41 minutes Placenta Delivery Date-Baby A: 07/18/20 Placenta Delivery Time-Baby A: 18:42 Labor-Stage 3 Duration: 9 minutes Total Length of Labor-Baby A: 9 hours and 43 minutes Placenta Cultured: No Baby A Gender: Female Gestational Status: Term (39-41.6 wks) Gestational Age in Weeks/Days: 39 Weeks and 5 Days weight: 8 lb 2.69 oz Weight Comment: 3705 gms Score-1 Minute Interval(Baby A) Heart Rate-1 minute: 100 BPM or Greater Respiratory Effort- 1 minute: Spontaneous/Strong Cry Muscle Tone-1 minute: Active Movement Reflex Response-1 minute: Prompt Response Color-1 minute: Pallor or Cyanosis Total Score-1 minute: 8 Score-5 Minute Interval(Baby A) Heart Rate- 5 minute: 100 BPM or Greater Respiratory Effort-5 minute: Spontaneous/Strong Cry Muscle Tone-5 minute: Active Movement Reflex Response-5 minute: Prompt Response Color-5 minute: Bluish Hands or Feet Total Score- 5 minute: 9 Procedure Procedures: Cord Blood Collection Interventions Repair of Laceration Type: Perineal , Laceration Extension: Second Degree . Sponge Count Correct: No Sponges Placed in Vagina , Sharp Count Correct: Yes . Laceration Repair Note: repaired under epidural anesthesia with 3.0 Vicryl.
[2020-07-18] MEDS: Acetaminophen 325 MG TAB 650 MG PO (20:11)
[2020-07-18] MEDS: Ibuprofen 600 MG TAB PO (20:11)
[2020-07-19 03:41] VITALS: BP 113/78; PULSE 91; RESP 18; TEMP 37.1; O2SAT 97
[2020-07-19] MEDS: Acetaminophen 325 MG TAB 650 MG PO ×4 (03:45→18:17)
[2020-07-19 06:56] LABS: HCT 28.8 % (36.0-46.0); HGB 9.3 g/dL (11.2-15.7); MCH 28.4 pg (27.0-33.0); MCHC 32.3 % (32.0-36.0); MCV 87.8 fL (80-95); MPV 10.3 fL (8.0-11.0); Platelet Count 196 10^3/uL (130-400); RBC 3.28 10^6/uL (3.93-5.22); RDW 15.4 % (11.7-14.6); RDW-SD 49.8 fL; WBC 13.59 10^3/uL (4.4-10.8)
[2020-07-19 07:30] VITALS: BP 111/75; PULSE 99; RESP 18; TEMP 37; O2SAT 96
[2020-07-19] MEDS: Ibuprofen 600 MG TAB PO ×3 (07:34→20:34)
--- NOTE | 2020-07-19 18:53 | W.PM.OBPNV1 ---
Date of service: 07/19/20 Time of Service: 13:54 Assessment and Plan Assessment and plan (1) Term delivered: Status: Acute Assessment and plan: A: PPD#1, nml recovery anemia, asymptomatic RhoGam given today P: pt hopes for discharge to home tomorrow Plans for using condoms as BCM Continue providing support hold iron supplement until after first BM Subjective Subjective Patient comments: Pain well controlled, Tolerating diet and Flatus present baby status: Doing well, Nursing well, Rooming in and Strong Bonding Observed feeding status: Exclusively breast feeding Exam Physical Exam Vital signs: Temp Pulse Resp BP Pulse Ox 98.6 F 99 H 18 111/75 96 07/19/20 07:30 07/19/20 07:30 07/19/20 07:30 07/19/20 07:30 07/19/20 07:30 Vital Signs Reviewed: Yes Constitutional Constitutional: no acute distress HEENT Exam HEENT Exam: Normal Neck Exam Neck Exam: Normal Breast Exam Bilateral: Breast Exam: Normal and Soft Nipple Exam: Normal and Bruised Respiratory Exam Respiratory Exam: Normal Cardiovascular Exam Cardiovascular Exam: Normal Abdominal Exam Abdomen: Other (soft, nontender) Fundal Exam Fundus: Below Umbilicus and Firm Rectal Exam Rectal Exam: Normal Exam Perineum: Bruising and Repair Intact External: Present swelling (minor) and vulvar tenderness Extremities Exam Extremity Exam: Normal Back/Spine/Pelvis Exam Back Exam: Normal Skin Exam Skin Exam: Normal Neurological Exam Neurological Exam: Normal Psychiatric Exam Psychiatric Exam: Normal Results Hemoglobin/Hematocrit: Hgb 9.3 g/dL (11.2-15.7) L D 07/19/20 06:15 Hct 28.8 % (36.0-46.0) L D 07/19/20 06:15
[2020-07-19 21:00] VITALS: BP 128/77; PULSE 98; RESP 18; TEMP 36.8; O2SAT 97
[2020-07-20] MEDS: Ibuprofen 600 MG TAB PO ×2 (02:42→09:38)
[2020-07-20 07:23] VITALS: BP 112/81; PULSE 104; RESP 20; TEMP 36.8; O2SAT 98
--- NOTE | 2020-07-20 10:31 | W.PM.OBPNV1 ---
Date of service: 07/20/20 Time of Service: 10:31 Assessment and Plan Assessment and plan (1) Term delivered: Status: Acute Assessment and plan: A: PPD#2, nml recovery Pt without concerns or questions Disappointed the is not going as smoothly as she expected Accepts supplemental formula, will keep pumping Satisfied with experience P: Discharge to home today Written instructions reviewed and given to pt F/up @ 2 & 6 wks Subjective Subjective Patient comments: No complaints, Pain well controlled, Tolerating diet and Flatus present [place] baby status: Doing well, Supplemental feeding going well, Rooming in and Strong Bonding Observed [place] feeding status: Breast and formula feeding and Pumping and bottle feeding Exam Physical Exam Vital signs: Temp Pulse Resp BP Pulse Ox 98.2 F 104 H 20 112/81 98 07/20/20 07:23 07/20/20 07:23 07/20/20 07:23 07/20/20 07:23 07/20/20 07:23 Vital Signs Reviewed: Yes Constitutional Constitutional: no acute distress HEENT Exam HEENT Exam: Normal Neck Exam Neck Exam: Normal Breast Exam Bilateral: Breast Exam: Normal and Soft Respiratory Exam Respiratory Exam: Normal Cardiovascular Exam Cardiovascular Exam: Normal Abdominal Exam Abdomen: Other (soft, nontender) Fundal Exam Fundus: Below Umbilicus and Firm Rectal Exam Rectal Exam: Normal Exam Perineum: Bruising and Repair Intact External: Present swelling (minor) and vulvar tenderness Extremities Exam Extremity Exam: Normal Back/Spine/Pelvis Exam Back Exam: Normal Skin Exam Skin Exam: Normal Neurological Exam Neurological Exam: Normal Psychiatric Exam Psychiatric Exam: Normal
--- NOTE | 2020-07-20 10:35 | DSE_ITS ---
Date of service: 07/20/20 Time of Service: 10:35 DS: Diagnosis Discharge Diagnosis (1) Term delivered: Status: Acute Discharge Plan Disposition Patient Disposition: HOME Condition: Good Discharge Details Reason For Visit: R/O LABOR AND SROM AT TERM Admit Date/Time: 07/18/20 09:19 Admit Provider: Marleny Mckenzie Attending Provider: Marleny Mckenzie Primary Care Provider: Unknown,Unknown Hospital Course Hospital Course: spontaneous labor, epidural anesthesia, nml delivery, nml course Home Meds and New Rx's Prescriptions: No Action ferrous sulfate 325 mg (65 mg iron) tablet 325 mg PO DAILY Qty: 60 RF: 4 PNV #[id number] 30 mg iron-10 mg iron-1 mg capsule 1 cap PO DAILY Qty: 90 RF: 3 Discharge Instructions Additional Instructions: Please keep your 2 & 6 week appt's with your [facility] psychiatrist, call for any concerns or questions. Stand Alone Forms: BC Instructions, NB Crump Instructions, BC Post Vaginal Deliver Activity:: Activity as Tolerated Equipment/Supplies:: No Equipment Needed Diet:: Normal Diet Discharge Orders Discharge Orders: Discharge Order (Routine); Ordered 07/20/20 Ordered By: Marleny Mckenzie OB:DS Summary Summary Vaginal Delivery Method: Spontaneaous Episiotomy Description: None Laceration Description: Perineal Laceration Extension: Second Degree Contraception Discussed Contraception Discussed: Yes Contraceptive Plan: Foam/Condoms, Crump Infant Gender-Baby A: Female weight: 8 lb 2.69 oz Status at Discharge Functional status at discharge: independent ambulation Overall status at discharge: patient is progressing back to baseline Mental Status: mental status grossly normal Speech and Movement: speech and movement normal and speech clear Mood: congruent mood Affect: normal affect Exam Physical Exam Vital signs: Temp Pulse Resp BP Pulse Ox 98.2 F 104 H 20 112/81 98 07/20/20 07:23 07/20/20 07:23 07/20/20 07:23 07/20/20 07:23 07/20/20 07:23 Vital Signs Reviewed: Yes Constitutional Constitutional: no acute distress HEENT Exam HEENT Exam: Normal Neck Exam Neck Exam: Normal Breast Exam Bilateral: Breast Exam: Normal and Soft Respiratory Exam Respiratory Exam: Normal Cardiovascular Exam Cardiovascular Exam: Normal Abdominal Exam Abdomen: Other (soft, nontender) Fundal Exam Fundus: Below Umbilicus and Firm Rectal Exam Rectal Exam: Normal Exam Perineum: Bruising and Repair Intact External: Present swelling (minor) and vulvar tenderness Extremities Exam Extremity Exam: Normal Back/Spine/Pelvis Exam Back Exam: Normal Skin Exam Skin Exam: Normal Neurological Exam Neurological Exam: Normal Psychiatric Exam Psychiatric Exam: Normal COUNT INCLUDES THE [facility] Medical History (Updated 07/19/20 @ 07:04 by Marleny Mckenzie) 39 weeks gestation of Complete miscarriage Elevated prolactin level Galactorrhea Irregular uterine contractions Missed menses Oligomenorrhea Pituitary microadenoma Positive test at early stage Surgical History History of appendectomy S/P breast augmentation Family History Father Well adult Mother Well adult Paternal Grandmother Breast cancer Social History Smoking/Tobacco Use Status: Never Second Hand Exposure: No Smoking risk assessment performed?: Yes Alcohol Intake: never Drug use: Never Substance use type: does not use History History 2 Para 0 Hx # Term Pregnancies 0 Multiple births 0 Hx # Pregnancies 0 Ectopic pregnancies 0 AB induced 0 Hx Number of Living Children 0 AB spontaneous 1 Past Pregnancies Del. Date GA/Weeks # Outcome Route Wgt Sex Labor Lgth Anesthes ia Location Prov Complic Unknown 4 Unsuccessful Delivery Date: Biochemical Norma Miguel DS: Data Vitals/I&O Vitals and I&O: Vital Signs Temperature 98.2 F 07/20/20 07:23 Pulse 104 H 07/20/20 07:23 Pulse Rhythm Regular 07/20/20 07:34 Respiratory Rate 20 07/20/20 07:23 Respiratory Depth Normal 07/18/20 09:22 Blood Pressure 112/81 07/20/20 07:23 Blood Pressure Mean 91 07/20/20 07:23 Pulse Oximetry 98 07/20/20 07:23 Oxygen Delivery Method Room Air 07/18/20 09:22 Oxygen Flow Rate 0 07/18/20 09:22 Pain Level 4 07/20/20 09:38 Intake & Output 07/19/20 07/19/20 07/20/20 11:59 23:59 11:59 Intake Total 1500 / 2950 1450 / 2950 Output Total 1450 / 1450 Balance 50 / 1500 1450 / 1500 Intake: IV 1500 / 1500 Oral 1450 / 1450 Output: Urine 1450 / 1450 Other: Urine Color Pale Yellow Bright Red Urine Appearance Clear Urine Odor None Data Completed and Pending Labs on day of discharge: Labs from last 24 hours 07/19/20 07/18/20 06:15 09:35 Patient ABO/Rh O Negative Antibody Screen Negative Screen Negative Unit Expiration Date 08/08/21 Product Lot # [id number]
== END 2020-07-20 11:00 | disposition home or self-care (01) | DRG 806 ==
LOC: OBS 08:51
PROVIDERS: Admitting Provider Advanced Practice Midwife; Visit Provider Advanced Practice Midwife
DX: O42.02 Full-term premature rupture of membranes, onset of labor within 24 hours of rupture (principal); O36.0930 Maternal care for other rhesus isoimmunization, third trimester, not applicable or unspecified; Z37.0 Single live birth; E22.1 Hyperprolactinemia; O99.284 Endocrine, nutritional and metabolic diseases complicating childbirth; Z3A.39 39 weeks gestation of pregnancy; O70.1 Second degree perineal laceration during delivery
CPT/HCPCS: 36415; 85027; 85461; 86850; 86900; 86901; 87635; 90384; J2210; J2790

== ENCOUNTER 2021-03-11 03:12 | Outpatient (CLI) | payer OTHER, SELFPAY ==
[2021-03-11 15:03] LABS: Kit/Specimen SENT
[2021-03-11 15:17] LABS: Abs Immature Grans 0.03 10^3/uL (0.0-0.06); Absolute Basophil Count 0.05 10^3/uL (0.0-0.2); Absolute Eosinophil Count 0.07 10^3/uL (0.0-0.7); Absolute Lymphocyte Count 1.73 10^3/uL (1.2-3.4); Absolute Neutrophil Count 7.08 10^3/uL (1.2-6.7); Basophils % 0.5; Eosinophils % 0.7; HCT 36.3 % (36.0-46.0); HGB 12.1 g/dL (11.2-15.7); Immature Grans % 0.3; Lymphocytes % 18.5; MCH 28.5 pg (27.0-33.0); MCHC 33.3 % (32.0-36.0); MCV 85.6 fL (80-95); MPV 10.1 fL (8.0-11.0); Monocytes % 4.3; Neutrophils % 75.7; Nucleated RBC 0 %; Platelet Count 283 10^3/uL (130-400); RBC 4.24 10^6/uL (3.93-5.22); RDW 13.3 % (11.7-14.6); RDW-SD 41.4 fL; WBC 9.36 10^3/uL (4.4-10.8)
[2021-03-11 16:06] LABS: TSH (W/Ref FT4) 0.83 uIU/mL (0.36-3.74)
[2021-03-11 16:57] LABS: *AMPHETAMINES SCREEN URINE Negative (Negative); *BARBITURATES SCREEN URINE Negative (Negative); *BENZODIAZEPINES SCREEN URINE Negative (Negative); Cannabinoids THC Negative (Negative); Cocaine Screen,Urine Negative (Negative); METHADONE URINE SCREEN Negative (Negative); OPIATES URINE SCREEN Negative (Negative)
[2021-03-11 16:58] LABS: Tricyclic Antidepressants Negative (Negative)
[2021-03-12 13:57] LABS: Syphilis Total Ab w/Reflex Nonreactive (Nonreactive)
[2021-03-14 10:23] LABS: Varicella IgG Antibody Positive (See Note)
[2021-03-14 10:26] LABS: Hepatitis B Surface Ag Negative (Negative)
[2021-03-14 10:33] LABS: Rubella IgG Ab (UVM) Positive (See Note)
[2021-03-14 10:44] LABS: Hepatitis C Ab w Rflx HCV PCR Negative (Negative)
[2021-03-14 13:06] LABS: HIV-1/2 Ag & Ab Screen Negative (Negative)
[2021-03-18 12:20] LABS: Buprenorphine Negative ng/mL (Cutoff: 5.0); Norbuprenorphine Negative ng/mL (Cutoff: 2.5)
== END 2021-03-11 03:13 | disposition home or self-care (01) ==
LOC: LBO 03:12
PROVIDERS: Visit Provider Advanced Practice Midwife
DX: O99.281 Endocrine, nutritional and metabolic diseases complicating pregnancy, first trimester (principal); D35.2 Benign neoplasm of pituitary gland; Z13.71 Encounter for nonprocreative screening for genetic disease carrier status; Z34.91 Encounter for supervision of normal pregnancy, unspecified, first trimester
CPT/HCPCS: 80307; 86787; 86803; 86850; 86900; 86901; 87340; 87389; 84443; 85025; 86762; 86780; 87086

== ENCOUNTER 2021-04-08 04:20 | Outpatient (CLI) | payer OTHER, SELFPAY ==
[2021-04-11 11:13] LABS: AFP 40.1 ng/mL; Calculated age at EDD 27 years; Cigarette smoking status non-Smoker; GA used in risk estimate Scan estimate; IVF Pregnancy No; Initial or repeat testing Initial testing; Insulin dependent diabetes No; Maternal Weight 165 lbs; Number of Fetuses 1; Physician Phone Number 802-748-7300; Prev Pregnancy w/NTD No; RECOMMENDED FOLLOW UP None.; Results Summary Normal risk
== END 2021-04-08 04:21 | disposition home or self-care (01) ==
LOC: LBO 04:20
PROVIDERS: Advanced Practice Midwife; Visit Provider Advanced Practice Midwife
DX: Z34.92 Encounter for supervision of normal pregnancy, unspecified, second trimester (principal)
CPT/HCPCS: 36415; 82105

== ENCOUNTER 2021-06-24 02:41 | Outpatient (CLI) | payer OTHER, SELFPAY ==
[2021-06-24 08:59] LABS: HCT 34.8 % (36.0-46.0); HGB 10.9 g/dL (11.2-15.7); MCH 28.1 pg (27.0-33.0); MCHC 31.3 % (32.0-36.0); MCV 89.7 fL (80-95); MPV 9.9 fL (8.0-11.0); Platelet Count 240 10^3/uL (130-400); RBC 3.88 10^6/uL (3.93-5.22); RDW 13.1 % (11.7-14.6); RDW-SD 43.1 fL
[2021-06-24 09:10] LABS: Glucose,1 Hr (Glucola) 132 mg/dL (80-140)
== END 2021-06-24 02:42 | disposition home or self-care (01) ==
LOC: LBO 02:41
PROVIDERS: Visit Provider Advanced Practice Midwife
DX: O36.0130 Maternal care for anti-D [Rh] antibodies, third trimester, not applicable or unspecified (principal); Z67.91 Unspecified blood type, Rh negative
CPT/HCPCS: 36415; 82950; 85027; 86850; 86900; 86901; 90384

== ENCOUNTER 2021-07-29 01:20 | Outpatient (CLI) | payer OTHER, SELFPAY ==
--- NOTE | 2021-07-29 08:15 | DI.US_ITS ---
Exam(s) US OB MATI WEIGHT EXAM: US OB MATI WEIGHT CLINICAL HISTORY: interval growth,COVID in March,F/U LYING PLACENTA,U07.1. TECHNIQUE: Transabdominal obstetrical ultrasound was performed. COMPARISON: US US OB F/U FACIAL/LVOT/RVOT from 06/24/2021 FINDINGS: There is a single viable intrauterine gestation with cardiac activity identified-143 bpm The fetus is presently in cephalic position . Amniotic fluid: There is a normal amount of amniotic fluid with an MATI of 16.3cm. Placental location: The placenta is posterior grade 1,with no evidence of placenta previa. Dating parameters place this at approximately 32 weeks and 3 days gestational age, implying FLAKITA of September 20, 2021. BPD measures 32 weeks and 5 days HC measures 32 weeks and 5 days AC measures 32 weeks and 5 days FL measures 31 week and 2 days Estimated weight is 1939 gm-4 pounds 4 ounces Fetus is at the 31st percentile on the Hadlock scale. IMPRESSION:: Viable 3rd trimester gestation, as described above. DATA REPOSITORY:
== END 2021-07-29 01:40 ==
PROVIDERS: Visit Provider Advanced Practice Midwife
DX: O98.512 Other viral diseases complicating pregnancy, second trimester (principal); U07.1 COVID-19; Z3A.32 32 weeks gestation of pregnancy
CPT/HCPCS: 76816

== ENCOUNTER 2021-08-26 16:13 | Outpatient (REF) | payer OTHER, SELFPAY ==
[2021-08-26 13:41] LABS: *AMPHETAMINES SCREEN URINE Negative (Negative); *BARBITURATES SCREEN URINE Negative (Negative); *BENZODIAZEPINES SCREEN URINE Negative (Negative); Cannabinoids THC Negative (Negative); Cocaine Screen,Urine Negative (Negative); METHADONE URINE SCREEN Negative (Negative); OPIATES URINE SCREEN Negative (Negative)
[2021-08-26 13:43] LABS: Tricyclic Antidepressants Negative (Negative)
[2021-09-01 15:21] LABS: Buprenorphine Negative ng/mL (Cutoff: 5.0); Norbuprenorphine Negative ng/mL (Cutoff: 2.5)
== END 2021-08-26 16:14 | disposition home or self-care (01) ==
LOC: LBN 16:13
PROVIDERS: Visit Provider Advanced Practice Midwife
DX: Z34.93 Encounter for supervision of normal pregnancy, unspecified, third trimester (principal); Z3A.36 36 weeks gestation of pregnancy; Z36.85 Encounter for antenatal screening for Streptococcus B
CPT/HCPCS: 80307; 87081

== ENCOUNTER 2021-09-20 21:38 | Inpatient (IN) | payer OTHER, SELFPAY ==
[2021-09-20] VITALS (46 sets, daily range): BP systolic 97–123; BP diastolic 56–86; PULSE 82–103; RESP 17; TEMP 36.8–37; O2SAT 97–100
--- NOTE | 2021-09-20 21:56 | HPE_ITS ---
Date of service: 09/20/21 Time of Service: 21:56 Assessment and Plan Assessment and plan (1) Normal labor: Status: Acute Assessment and plan: 1. Admit 2. IV and labs 3. Anesthesia notified of patient request, plan intrathecal, pituitary adenoma has been cleared in past for regional anesthesia. 4. Expect NVD. OB-HPI Labor/Delivery History of Present Illness Reason for Visit: Rule out Labor Chief Complaint: Uterine Contractions. FLAKITA Calculator Estimated Delivery Date Method Current WG Current Estimate 09/19/21 Ultrasound #1 40w 1d Other Estimates 08/19/21 LMP (Certain) 44w 4d Comments: Dipti and her Marcin present for labor check. Regular painful contractions for approximately 2 hours. No ROM. Requesting epidural. VE /-1 ant soft. Will admit, get labs and IV access and notify anesthesia of patient request. Will use nitrous at this time as well. KH History of Present Expected Delivery Route/Plan - CNM GBS neg FOB/ - Marcin Gleason (2nd child together) BG Specific Issues/Plan 1. Hx pituitary microadenoma, followed @ [facility] Endo, next appt 06/13/21 1a. Endo appt: will wait until after delivery then begin medication Cabergoline 2. Hx breast augmentation; low milk production, stopped pumping at 2 wks. Wants to try again. 3. CF/SMA carrier negative from previous ; cfDNA drawn 03/11. AFP single marker=normal risk 4. Close pregnancies: conceived at 5 months 5. Pt and are COVID vaccinated, planning for booster soon 5a. covid infection -04/06, 32 week growth US: EFW in 31st percentile, MATI 16.3 6. PAP current at initial OB, due at 6 wks appt 7. Rh negative, RhoGam at 28 wks, done 06/24/21 8. Low lying placenta - pelvic rest, follow up 28 wks 06/24/21 / low lying placenta resolved, posterior tip 7cm from os Assessment: History Reviewed & Current Informed Consent Informed Consent: Regional Anesthesia and Other (nitrous oxide) Review of Systems All systems reviewed & are unremarkable except as noted in HPI and below PFSH All Active Problems (Updated 09/20/21 @ 22:06 by Kylie Hauser CNM) Normal labor (Acute) Numerous skin moles (Acute) COVID-19 affecting in second trimester (Acute) Faint heart murmur (Acute) (Acute) Saline breast implant in situ (Acute) Rh negative state in antepartum period (Acute) Pituitary microadenoma (Acute) Medical History 39 weeks gestation of Complete miscarriage Elevated prolactin level Galactorrhea Irregular uterine contractions Missed menses Oligomenorrhea Positive test Positive test at early stage Rupture of membranes with clear amniotic fluid Surgical History History of appendectomy S/P breast augmentation Family History Father Well adult Mother Well adult Paternal Grandmother Breast cancer Social History Second Hand Exposure: No Smoking risk assessment performed?: No Alcohol Intake: never Drug use: Never Substance use type: does not use History History 3 Para 1 Hx # Term Pregnancies 1 Multiple births 0 Hx # Pregnancies 0 Ectopic pregnancies 0 AB induced 0 Hx Number of Living Children 1 AB spontaneous 1 Past Pregnancies Del. Date GA/Weeks # Preg Succ Route Wgt Sex Labor Lgth Anesth esia Location Prov Complic Unknown 4 07/18/20 39 No vaginal 8 lb 2.69 oz Female 9hrs 43 min local [facility] Delivery Date: Last Updated by: Kylie Mendoza CNM anembryonic Delivery Date: 07/18/20 Last Updated by: ROSEANNA Ríos; 2nd degree lac. w/repair. Meds Allergies and Home Medications Allergies Allergy/AdvReac Type Severity Reaction Status Date / Time Sulfa (Sulfonamide Allergy Severe Hives Verified 09/20/21 22:04 Antibiotics) ascorbic acid Allergy Intermediate Hives Verified 09/20/21 22:04 Home Medications Medication Instructions Recorded Confirmed Type vitamin#30 30 mg iron-10 1 cap PO DAILY #90 caps 05/14/20 09/20/21 Rx mg iron-folic acid 1 mg-omg3 capsule ferrous sulfate 134 mg (27 mg 134 mg PO DAILY 05/06/21 09/20/21 History iron) tablet Exam Physical Exam Vital signs: Pulse BP 94 H 123/85 09/20/21 21:51 09/20/21 21:51 Vital Signs Reviewed: Yes Constitutional Constitutional: moderate distress (uterine contractions, patient managing them well) Detailed Labor and Delivery Exam Dilation: 7 Effacement (%): 100 station: -1 Cervix position: anterior Consistency: soft Lin Score: Cervical Points Exam 0 1 2 3 Dilation Closed 1-2cm 3-4 cm 5-6cm Effacement 0-30% 40-50% 60-70% 80% Consistency Firm Medium Soft Station -3 -2 -1,0 +1,+2 Position Posterior Mid Anterior LIN Score(Cervical Ripeness Score): 12 Amniotic Membrane Status: Intact Monitor Mode: External Contraction Frequency(min): 2-3 Contraction Duration(sec): 60 Contraction Intensity: Moderate/Strong Fetus A Heart Rate Baseline: 132 Monitor Accelerations: 15 X 15 Monitor Decelerations: None Variability: Moderate (6-25 BPM) Categories: Category I Est. Weight: 7 lb HEENT Exam HEENT Exam: Normal (patient has known pituitary adenoma, seen by neuro [facility], has been cleared for regional anesthesia) Neck Exam Neck Exam: Normal Chest/Brest/Axilla Exam Chest Exam: Normal Breast Exam Breast Exam: Not Done (has implants, had some difficulty with milk production last delivery, plans to try again) Respiratory Exam Respiratory Exam: Normal Cardiovascular Exam Cardiovascular Exam: Normal Abdominal Exam Abdominal Exam: Normal Rectal Exam Rectal Exam: Not Done Exam Exam: Normal Extremities Exam Extremities Exam: Normal Back/Spine/Pelvis Exam Back Exam: Not Done Pelvis Adequate: Yes Skin Exam Skin Exam: Normal Neurological Exam Neurological Exam: Normal Psychiatric Exam Psychiatric Exam: Normal Results Results Group Beta Strep: Negative Blood Type: O- Rubella Status: Immune Varicella Immunity: Immune Lab Results: cfDNA low risk, female gender / CF and SMA neg / single marker AFP normal risk for ONTD / GC CT neg/ syphilis, HIV, Hep B, Hep C all neg. KH Risk Assessment Risk for Shoulder Dystocia Historical/Initial OB: NEGATIVE FOR: Pelvic Abnormality, Pre- BMI>30, Previous Shoulder Dystocia or Previous Macrosomia 40 Weeks: NEGATIVE FOR: EFW> 4500 gms, Maternal Weight Gain >40lb or Post Dates Delivery Plan @ 36wks: NVD planned Delivery Plan @ 40 wks: LORETO. GIBRAN Risk for Pre-Eclampsia Date Initiated/Initials: not indicated JK Yes, if one or more: NEGATIVE FOR: Hx Pre-E/Gest HTN, Chronic HTN, Multiple Gestation, Pre-gestational DM, Renal Disease, Systemic Lupus or APA Syndrome Yes, if 2 or more: POSITIVE FOR: Nulliparity; NEGATIVE FOR: Age>= 35 yrs, >10yr btwn pregnancies, BMI>30, ethinicty, Mother/Sister w/ Pre-E or Previous IUGR Risk for Post- Hemorrhage Initial: NEGATIVE FOR: Multiple Gestation, Previous PPH, Known Clotting Deficiency, Grand Multiparity or Anticoagulation At Risk?: No Counseled re: Active Management: Yes Date/Initials: 09/20/21. GIBRAN Risks Reviewed Risks Reviewed Upon Admission: Yes
[2021-09-20] MEDS: Lactated Ringers 1,000 ML 150 ML IV (22:10)
[2021-09-20 22:16] LABS: Source Nasal/Nares
[2021-09-20 22:18] LABS: HCT 36.3 % (36.0-46.0); HGB 11.9 g/dL (11.2-15.7); MCH 28.6 pg (27.0-33.0); MCHC 32.8 % (32.0-36.0); MCV 87 fL (80-95); MPV 10.8 fL (8.0-11.0); Platelet Count 214 10^3/uL (130-400); RBC 4.16 10^6/uL (3.93-5.22); RDW 14.8 % (11.7-14.6); RDW-SD 47.2 fL; WBC 12.84 10^3/uL (4.4-10.8)
--- NOTE | 2021-09-20 22:21 | W.ANESPRE ---
General Info Date of Service Date Performed: 09/20/21 Height: 63 ft Weight: 180 kg Body Mass Index (BMI): 0.4 Meds Allergies and Home Medications Allergies Allergy/AdvReac Type Severity Reaction Status Date / Time Sulfa (Sulfonamide Allergy Severe Hives Verified 09/20/21 22:04 Antibiotics) ascorbic acid Allergy Intermediate Hives Verified 09/20/21 22:04 Home Medication Medication Instructions Recorded vitamin#30 30 mg iron-10 1 cap PO DAILY #90 caps 05/14/20 mg iron-folic acid 1 mg-omg3 capsule ferrous sulfate 134 mg (27 mg 134 mg PO DAILY 05/06/21 iron) tablet Current Visit Medications: Current Medications Generic Name Dose Route Start Last Admin Trade Name Freq PRN Reason Stop Dose Admin Sodium Chloride 500 mls @ 0 mls/hr 09/20/21 21:54 Saline 500ml Bag IV PRN PRN As Directed Ringer's Solution 1,000 mls @ 150 mls/hr 09/20/21 22:00 09/20/21 22:10 IV 150 mls/hr INFUSION JUAN Administration IV Miscellaneous Supplies 1 each 09/20/21 22:00 Iv Access IV DIRECTED JUAN Sodium Chloride 0 ml 09/20/21 21:54 Normal Saline Flush 10 Ml Syr IVP PRN PRN PFSH Active Problems Active Problems: Problem Status Onset Code Normal labor O80, Z37.9 Numerous skin moles D22.9 COVID-19 affecting in second trimester O98.512, U07.1 Marginal placenta previa O44.20 Faint heart murmur R01.1 Z34.90 Saline breast implant in situ Z98.82 Rh negative state in antepartum period O26.899, Z67.91 Pituitary microadenoma D35.2 Medical History Medical History 39 weeks gestation of Complete miscarriage Elevated prolactin level Galactorrhea Irregular uterine contractions Missed menses Oligomenorrhea Positive test Positive test at early stage Rupture of membranes with clear amniotic fluid Surgical History Surgical History History of appendectomy S/P breast augmentation Tobacco Second hand exposure: No Alcohol Alcohol Intake: never Substance Use Substance use: Never Substance use type: does not use Prental History History 3 Para 1 Hx # Term Pregnancies 1 Multiple births 0 Hx # Pregnancies 0 Ectopic pregnancies 0 AB induced 0 Hx Number of Living Children 1 AB spontaneous 1 Past Pregnancies Del. Date GA/Weeks # Preg Succ Route Wgt Sex Labor Lgth Anesthesia Location Prov Complic Unknown 4 07/18/20 39 No vaginal 3704.999 g Female 9hrs 43 min local [facility] Delivery Date: Last Updated by: Kylie Mendoza CNM anembryonic Delivery Date: 07/18/20 Last Updated by: ROSEANNA Ríos; 2nd degree lac. w/repair. Vital Signs and Lab Results Vital Signs Most Recent Vital Signs in EMR: Most Recent Vital Signs Pulse BP 94 H 123/85 09/20/21 21:51 09/20/21 21:51 Lab Results Result Diagrams: 09/20/21 22:07 Blood Type / Crossmatch: No Data to Display Complete Blood Count: No Data to Display Complete Metabolic Panel: No Data to Display Liver Function Panel: No Data to Display Coagulation Panel: No Data to Display Cardiac Panel: No Data to Display Arterial Blood Gas: No Data to Display Venous Blood Gas: No Data to Display Pancreas Panel: No Data to Display Thyroid Panel: No Data to Display Infectious Disease: Coronavirus 2019 Source Nasal/Nares 09/20/21 22:10 Blood Cultures: No Data to Display Toxicology Panel: Urine Amphetamines Screen Negative (Negative) 08/26/21 11:15 Urine Benzodiazepines Screen Negative (Negative) 08/26/21 11:15 Urine Barbiturates Screen Negative (Negative) 08/26/21 11:15 Urine Cocaine Screen Negative (Negative) 08/26/21 11:15 Urine Methadone Screen Negative (Negative) 08/26/21 11:15 Urine Opiates Screen Negative (Negative) 08/26/21 11:15 Ur Tricyclic Antidepressants Screen Negative (Negative) 08/26/21 11:15 Ur Tetrahydrocannabinol (THC) Scrn Negative (Negative) 08/26/21 11:15 Panel: No Data to Display Anesthesia Assessment and Plan Anesthesia History Personal History: No History of Anesthesia Complications Family History: No Family History of Anesthesia Complications Exercise Tolerance Exercise Tolerance: Metabolic Equivalents>4 Pertinent Negatives Pertinent Negatives: No Symptoms of GERD, No Major Cardiovascular Symptoms or Complaints, No Major Pulmonary Symptoms or Complaints, No History of CVA/TIA and Other (Pituitary Gland mass cleared by hog cutter [facility]) Cardiac & Pulmonary Exam Cardiac Exam: Normal S1/S2 Heart Sounds Pulmonary Exam: Clear Bilateral Breath Sounds Implantable Cardiac Device Does patient have a Pacemaker or an ICD?: No Airway Exam Known Difficult Airway: No Mallampati Class: 1 Mouth Opening: Normal (> 3cm) Thyromental Distance: Greater than 3 cm Neck Range of Motion: Full ROM Neck Circumference: Normal Teeth Condition: Normal Dentition ASA Classification ASA Score: ASA 2 Emergency Case?: No NPO Status NPO Status: NPO Clears >2 hours, Solids >8 hours Status Status: Confirmed Anesthesia Plan Resuscitation Status: Full Code Anesthesia Technique: Spinal Anesthesia Airway Planned: Natural Airway Monitors Used: Standard Monitors
[2021-09-20] MEDS: Bupivacaine 0.25% Pres-Free 10 ML VIAL (22:39)
[2021-09-20] MEDS: fentaNYL 100 MCG/2 ML VIAL (22:40)
[2021-09-20 23:07] LABS: COVID-19 PCR Negative (Negative)
--- NOTE | 2021-09-20 23:16 | W.OBNST ---
Date of service: 09/20/21 Time of Service: 22:45 NST Evaluation Reason for NST Reasons for Nonstress Test: OTHER, SEE COMMENT Reason for NST Other: Labor Gestational Age Gestational Age in Weeks and Days: 40 Weeks and 1Days Test and Monitor Explained Test/Monitor Explained: Test Explained and Monitor Explained Vital Signs Blood Pressure: 123/85 Pulse: 94 Temperature: 98.2 F NST Information Date on Monitor: 09/20/21 Time on Monitor: 21:44 NST Evaluation Patient States Movement: Present FHR Baseline: 135 Variability: Moderate 6-25 bpm Accelerations: 15x15 Decelerations: None NST Results: Reactive Note NST Note Note: Reactive NST, active labor. Expect NVD. NST Reviewed and Verified by: Kylie Hauser
[2021-09-21] VITALS (82 sets, daily range): BP systolic 87–122; BP diastolic 51–95; PULSE 62–125; RESP 12–17; TEMP 36.7–37.3; O2SAT 95–100
[2021-09-21] MEDS: Oxytocin/Normal Saline 30 UNIT/500 ML BAG 167 UNITS IV (00:40)
--- NOTE | 2021-09-21 00:53 | W.OBDELIVERY ---
Date of service: 09/21/21 Time of Service: 00:53 OB Labor/ Delivery Information Baby A Delivery Delivery Method: Spontaneaous Presentation: Vertex Vertex Position: Right Occipital Anterior Cord Description-Baby A: 3 Vessels and Clamped/Cut (after 90 seconds of delayed cord clamping.) Estimated Blood Loss: 350 Delivery Outcome: Liveborn Infant Complications: none Transferred: Remains with Mother Note: Dipti presented in spontaneous active labor. Received intrathecal analgesia by TECHNICAL ARCHITECT without complication. Progressed to 10 cm and labored down until she felt pressure. FHR CAT I throughout. Pushed with excellent effort and delivered a live female at 0031 over 1st degree midline perineal laceration. Baby was brought up to Mother's abdomen for skin to skin. scores 9/9. 3vessel cord noted and after 90 seconds of pulsations cord was double clamped and cut by Mother. Placenta delievered spontaneously, intact at 0038. Fundus firms with massage and IV fluids with pitocin infusing. Perineum was infused with 1% lidocaine and laceration was repaired with 1 stitch of 3.0 chromic suture. Sponge, needle and instrument count correct. Mother and baby are in satisfactory condition. Baby girl Prabha will breast feed and may have formula supplementation as Dipti has breast implants and had some difficulty with milk production with her last daughter. Baby's weight 3615g [id number]. Patient had emesis and moderate amount of vaginal bleeding controlled by 0.2mg IM methergine and Ondasetron IV. Expect normal PP course. They plan to use progesterone only pills until Marcin has vasectomy and negative sperm counts. Labor/Delivery Information Group Beta Strep: Negative Rubella Status: Immune Blood Type: O- Varicella Immunity: Immune Stages of Labor Onset of Labor Date: 09/20/21 Onset of Labor Time: 19:00 ROM Baby A: 09/20/21 ROM Baby A: 22:58
[2021-09-21] MEDS: Lidocaine 1% Pres-Free 30 ML VIAL IJ (01:00)
[2021-09-21] MEDS: Lactated Ringers 1,000 ML 999 ML IV (01:08)
[2021-09-21] MEDS: Methylergonovine 0.2 MG/ML VIAL (01:08)
[2021-09-21] MEDS: Ondansetron 4 MG/2 ML VIAL IVP ×2 (01:10→06:48)
[2021-09-21] MEDS: Naloxone 0.4 MG/ML VIAL IVP ×3 (01:59→02:16)
[2021-09-21] MEDS: Scopolamine 1 MG/3 DAYS PATCH TD (02:11)
--- NOTE | 2021-09-21 02:11 | W.PM.OBPNV1 ---
Date of service: 09/21/21 Time of Service: 02:11 Assessment and Plan Assessment and plan (1) Nausea and vomiting: Status: Acute Assessment and plan: IV bolus of LR given, IV Zofran given, Scopolamine patch applied. Anesthesia and OB MD paged to review patient status VS stable, fundus firm less than U will get CBC stat. GIBRAN Subjective Subjective Interval history: Dipti has had persistent nausea and vomiting since delivery at 0031. Not relieved by Zofran IV. BP has been stable but she reports feeling light headed. Bi manual vaginal exam confirms no clots in lower uterine segment or uterine atony. She has been recieving IV fluid with pitocin, IV bolus of LR 500 cc, and had a single dose of Methergine 0.2IM. Due to her symptoms Narcan was given with improvement in O2 sat from 94% on room air to 100% but no improvement in vomiting. CNM has paged OB MD gas distribution supervisor and will notify anesthesia provider if symptoms continue. GIBRAN [place] baby status: Doing well Exam Physical Exam Vital signs: Temp Pulse Resp BP Pulse Ox 98.6 F 81 17 116/57 L 100 09/20/21 23:23 09/21/21 02:09 09/20/21 22:34 09/21/21 02:07 09/21/21 02:09 Vital Signs Reviewed: Yes Fundal Exam Fundus: Below Umbilicus and Firm Comment: small lochia, GIBRAN Exam Perineum: Normal and Repair Intact Results Hemoglobin/Hematocrit: Hgb 11.9 g/dL (11.2-15.7) 09/20/21 22:07 Hct 36.3 % (36.0-46.0) 09/20/21 22:07 Abnormal Lab Findings: Abnormal Labs 09/20/21 22:07 WBC 12.84 H RDW 14.8 H
--- NOTE | 2021-09-21 02:20 | NUR.NOTE ---
Nursing Note: Pt continues with nausea, somewhat improved after narcan. Scopalomine patch on. CNM at bedside. Anesthesia being contacted by CNM. Pt O2 sat has improved from 94-95% to 100% on room air. Having bouts of nausea and waves of feeling lightheaded.
[2021-09-21] MEDS: Naloxone 0.4 MG/ML VIAL 0.2 MG IVP (02:34)
[2021-09-21 02:40] LABS: HGB 11.3 g/dL (11.2-15.7); MCH 28.3 pg (27.0-33.0); MCHC 32.3 % (32.0-36.0); MCV 88 fL (80-95); MPV 10.6 fL (8.0-11.0); Platelet Count 191 10^3/uL (130-400); RBC 3.99 10^6/uL (3.93-5.22); RDW 14.9 % (11.7-14.6); RDW-SD 47.9 fL; WBC 19.98 10^3/uL (4.4-10.8)
--- NOTE | 2021-09-21 02:48 | PGE_ITS ---
Date of Service Date of service: 09/21/21 Time of Service: 02:48 Assessment and Plan Assessment and plan (1) care following vaginal delivery: Status: Acute Assessment and plan: 1. will continue to do routine PP care 2. Monitor bladder, attempt bedpan or straight cath (2) Lactating mother: Status: Acute Assessment and plan: 1. will support efforts. (3) Nausea and vomiting: Status: Acute Assessment and plan: 1. working with BONE DENSITY TECHNICIAN to relieve frequent nausea/vomiting and dizziness 2. BG 118 3. CBC stable 4. Meds ordered by marketing underwriter per telephone consult with Anup Guido CRNA for Narcan, Decadron, IV Benadryl. 5. BONE DENSITY TECHNICIAN will present to further assess patient. 6. OB MD relations manager Dr. Yusuf has been notified and agrees with plan to work with BONE DENSITY TECHNICIAN for control of symptoms. Subjective Subjective Interval history since last seen: Dipti continues to feel nausea, and dizzy with some shaking. BENJAMIN Guido has been communicating with CNM over phone for several minutes and giving orders to be placed for Decadron, IV Narcan, IV benadryl. We will continue to assess and he will call back in several minutes to see if symptoms are being relieved. Asset Analyst has also informed Dr. Yusuf of patient status and she agrees that we should work with anesthesia to help control patient symptoms. CBC was drawn and is essentially unchanged from prior to delivery. BP 107/66, P 73 SAO2 100% on room air. Exam Narrative Exam Narrative: VS stable, Fundus is firm, minimal vaginal bleeding. Const General: cooperative and acute distress (related to N/V and feeling dizzy. denies pain) Orientation: alert and oriented x3 HENMT Head: normal to inspection Ears: hearing grossly normal bilaterally Eyes General: appearance normal, both eyes and all related structures Other: denies visual disturbance Neck Neck: normal visual inspection Chest Chest: normal inspection of the chest Resp Effort & Inspection: normal respiratory effort and able to speak in complete sentences Cardio Rate: regular rate GI Other: frequent nausea and vomiting since delivery at 0031. External Female Exam: normal external appearance Other: fundus firm less than U, small lochia Skin Lesions: no lesions Rashes: no rashes Neuro General: patient alert, patient awake and moves all extremities Cognition: normal cognition Speech: speech normal Extrem General: normal to inspection and full ROM Psych Appearance: grossly normal Mental Status: mental status grossly normal Affect: normal affect (sad due to not feeling well) Thought Process: normal Thought Content: normal Objective Last Vital Signs Temp 98.6 F 09/20/21 23:23 Pulse 85 09/21/21 02:45 Resp 17 09/20/21 22:34 BP 107/66 09/21/21 02:38 Pulse Ox 98 09/21/21 02:44 Laboratory Results - last 24 hr 09/20/21 09/20/21 09/20/21 22:07 22:07 22:10 WBC 12.84 H RBC 4.16 Hgb 11.9 Hct 36.3 MCV 87 MCH 28.6 MCHC 32.8 RDW 14.8 H Plt Count 214 MPV 10.8 COVID-19 Source Nasal/Nares SARS-CoV-2 (PCR) Negative Patient ABO/Rh O Negative Antibody Screen NEGATIVE 09/21/21 02:38 WBC 19.98 H RBC 3.99 Hgb 11.3 Hct 35.0 L MCV 88 MCH 28.3 MCHC 32.3 RDW 14.9 H Plt Count 191 MPV 10.6 COVID-19 Source SARS-CoV-2 (PCR) Patient ABO/Rh Antibody Screen
[2021-09-21] MEDS: Dexamethasone 4 MG/ML VIAL 8 MG IVP (02:49)
[2021-09-21] MEDS: Naloxone 0.4 MG/ML VIAL 0.5 MG IVP (02:54)
[2021-09-21] MEDS: diphenhydrAMINE 50 MG/ML VIAL 12.5 MG IVP (03:00)
[2021-09-21] MEDS: Lactated Ringers 1,000 ML 150 ML IV (03:36)
--- NOTE | 2021-09-21 04:35 | NUR.NOTE ---
Nursing Note: Pt sleeping well, easily awakened. Nausea has decreased. She states she feels somewhat better-less nausea, no lightheadedness. Fundus massaged to firm, flow is rubra and continues as moderate. No clots at this time. Pt resettled. Hsb asleep at bedside
--- NOTE | 2021-09-21 06:29 | W.ANESPOSTOP ---
Postoperative Evaluation Date, Time and Location Date Performed: 09/21/21 Time Performed: Patient Location: Obstetrics Vital Signs Most Recent Imported Vital Signs: Most Recent Vital Signs Temp Pulse Resp BP Pulse Ox 36.8 C 77 16 111/58 L 98 09/21/21 04:55 09/21/21 05:03 09/21/21 04:55 09/21/21 04:55 09/21/21 05:01 Assessment Mental Status: Awake (Alert & Oriented to Patient Baseline) (showering) Airway and Respiratory Function: Patent airway with normal (patient baseline) respiratory exam Cardiovascular Function: Hemodynamically Stable Hydration Status: Adequately Hydrated Nausea & Vomiting: No Nausea or Vomiting Pain: Pt. Denies Any Pain Peripheral Nerve Block: Patient did not receive a nerve block Postoperative Comments:: Dizziness and nausea 100% resolved
--- NOTE | 2021-09-21 06:54 | W.PM.OBPNV1 ---
Date of service: 09/21/21 Time of Service: 06:54 Assessment and Plan Assessment and plan (1) care following vaginal delivery: Status: Acute Assessment and plan: 1. continue present management 2. encouraged slow increase in PO intake 3. Plan discharge 11/22. GIBRAN (2) Lactating mother: Status: Acute Assessment and plan: 1. Will encourage breast feeding today, due to her reaction to intrathecal and nausea/vomiting she has only attempted once since delivery. 2. Patient has had breast augmentation and had difficulty with breast milk production last delivery and plans to do a combination of breast and formula feeding. will work with today as needed. GIBRAN (3) Nausea and vomiting: Status: Acute Assessment and plan: 1. Nausea and vomiting has diminished with just one episode of vomiting this morning at approximately 0630 2. IV Zofran given 3. Can have additional Narcan for reversal of intrathecal medications per MANAGER ENVIRONMENTAL AFFAIRS if required. 4. Will give report to oncoming CNM for further evaluation and management. 5. Expect continued improvement today and to return to normal PP state. GIBRAN Subjective Subjective Interval history: Dipti slept well and has now been able to be out of bed to BR, voided and has tolerated that well. Did have PO intake and then shortly after vomited. Has had a dose of IV Zofran and will monitor for increased tolerance of PO intake again. Denies pain. [place] baby status: Doing well [place] feeding status: Breast and formula feeding Exam Physical Exam Vital signs: Temp Pulse Resp BP Pulse Ox 98.2 F 77 16 111/58 L 98 09/21/21 04:55 09/21/21 05:03 09/21/21 04:55 09/21/21 04:55 09/21/21 05:01 Vital Signs Reviewed: Yes Constitutional Constitutional: no acute distress, average body habitus and cooperative HEENT Exam HEENT Exam: Normal Neck Exam Neck Exam: Normal (normal visual inspection) Breast Exam Bilateral: Breast Exam: Normal Nipple Exam: Normal Respiratory Exam Respiratory Exam: Normal Cardiovascular Exam Cardiovascular Exam: Normal Abdominal Exam Abdomen: Other (normal exam) Fundal Exam Fundus: Below Umbilicus and Firm Comment: small lochia noted. Rectal Exam Rectal Exam: Not Done Exam Perineum: Intact and Normal Extremities Exam Extremity Exam: Normal (denies calf tenderness) and Full ROM Back/Spine/Pelvis Exam Back Exam: Normal Skin Exam Skin Exam: Normal Neurological Exam Neurological Exam: Normal Psychiatric Exam Psychiatric Exam: Normal Results Hemoglobin/Hematocrit: Hgb 11.3 g/dL (11.2-15.7) 09/21/21 02:38 Hct 35.0 % (36.0-46.0) L 09/21/21 02:38 Abnormal Lab Findings: Abnormal Labs 09/20/21 09/21/21 22:07 02:38 WBC 12.84 H 19.98 H Hct 35.0 L RDW 14.8 H 14.9 H
--- NOTE | 2021-09-21 18:48 | NUR.NOTE ---
Output: Pt has voided - per report pt voided around 1300 without measure; A - placed measure in toilet, advised to measure voide; R - Pt removed hat /a void.
[2021-09-22] MEDS: Acetaminophen 325 MG TAB 650 MG PO (08:10)
[2021-09-22] MEDS: Ibuprofen 600 MG TAB PO (08:11)
[2021-09-22 08:12] VITALS: BP 97/65; PULSE 62; RESP 16; TEMP 36.8; O2SAT 99
--- NOTE | 2021-09-22 09:33 | W.PM.OBDISCH ---
Date of service: 09/22/21 Time of Service: 09:33 DS: Diagnosis Discharge Diagnosis (1) care following vaginal delivery: Status: Acute Asessment and Plan: Dipti had episodes of nausea and dizziness after delivery and was treated with zofran. By 0800 yesterday morning, the symptoms had resolved and Dipti was resting comfortably. She is caring for baby independently. Pain is managed well with oral analgesics. Voiding without difficulty. She is pumping and feeding pumped milk and formula due to past difficulty with latching the baby. A - stable mother and baby , Post day 1 P - Discharge to home today . Routine post instructions. Follow up at [facility]. (2) Lactating mother: Status: Acute (3) Nausea and vomiting: Status: Acute Discharge Plan Disposition Patient Disposition: HOME Condition: Good Discharge Details Reason For Visit: Labor Admit Date/Time: 09/20/21 21:38 Admit Provider: Kylie Hauser Attending Provider: Kylie Hauser Primary Care Provider: Unknown,Unknown Home Meds and New Rx's Prescriptions: Continued PNV #[id number] 30 mg iron-10 mg iron-1 mg capsule 1 cap PO DAILY Qty: 90 3RF Discontinued ferrous sulfate 134 mg (27 mg iron) tablet 134 mg PO DAILY Discharge Instructions Stand Alone Forms: BC Post Vaginal Deliver Activity:: Activity as Tolerated Equipment/Supplies:: No Equipment Needed Diet:: As Tolerated Discharge Orders Discharge Orders: Discharge Order (Routine); Ordered 09/22/21 Ordered By: Kylie Mendoza OB:DS Summary Summary Vaginal Delivery Method: Spontaneaous Episiotomy Description: None Laceration Description: Perineal Laceration Extension: First Degree Contraception Discussed Contraception Discussed: Yes Contraceptive Plan: Vasectomy, Infant Gender-Baby A: Female weight: 7 lb 15.515 oz Status at Discharge Functional status at discharge: independent ambulation Overall status at discharge: patient is back to baseline Mental Status: mental status grossly normal Speech and Movement: speech and movement normal Mood: congruent mood Affect: normal affect Exam Physical Exam Vital signs: Temp Pulse Resp BP Pulse Ox 98.2 F 62 16 97/65 L 99 09/22/21 08:12 09/22/21 08:12 09/22/21 08:12 09/22/21 08:12 09/22/21 08:12 Constitutional Constitutional: no acute distress Respiratory Exam Respiratory Exam: Normal Cardiovascular Exam Cardiovascular Exam: Normal Fundal Exam Fundus: Below Umbilicus and Firm Exam Perineum: Repair Intact Extremities Exam Extremity Exam: Normal PFSH All Active Problems (Updated 09/21/21 @ 02:59 by Kylie Hauser CNM) Lactating mother (Acute) care following vaginal delivery (Acute) Nausea and vomiting (Acute) Normal labor (Acute) Numerous skin moles (Acute) COVID-19 affecting in second trimester (Acute) Faint heart murmur (Acute) (Acute) Saline breast implant in situ (Acute) Rh negative state in antepartum period (Acute) Pituitary microadenoma (Acute) Medical History 39 weeks gestation of Complete miscarriage Elevated prolactin level Galactorrhea Irregular uterine contractions Missed menses Oligomenorrhea Positive test Positive test at early stage Rupture of membranes with clear amniotic fluid Surgical History History of appendectomy S/P breast augmentation Family History Father Well adult Mother Well adult Paternal Grandmother Breast cancer Social History Smoking/Tobacco Use Status: Never Second Hand Exposure: No Smoking risk assessment performed?: Yes Alcohol Intake: never Drug use: Never Substance use type: does not use History History 3 Para 1 Hx # Term Pregnancies 1 Multiple births 0 Hx # Pregnancies 0 Ectopic pregnancies 0 AB induced 0 Hx Number of Living Children 1 AB spontaneous 1 Past Pregnancies Del. Date GA/Weeks # Preg Succ Route Wgt Sex Labor Lgth Anesthesia Location Prov Complic Unknown 4 07/18/20 39 No vaginal 8 lb 2.69 oz Female 9hrs 43 min local [facility] Delivery Date: Last Updated by: Kylie Mendoza CNM anembryonic Delivery Date: 07/18/20 Last Updated by: ROSEANNA Ríos; 2nd degree lac. w/repair. DS: Data Vitals/I&O Vitals and I&O: Vital Signs Temperature 98.2 F 09/22/21 08:12 Pulse 62 09/22/21 08:12 Pulse Rhythm Regular 09/22/21 08:12 Respiratory Rate 16 09/22/21 08:12 Respiratory Depth Normal 09/21/21 15:00 Blood Pressure 97/65 L 09/22/21 08:12 Blood Pressure Mean 75 09/22/21 08:12 Pulse Oximetry 99 09/22/21 08:12 Oxygen Delivery Method Room Air 09/21/21 20:05 Oxygen Flow Rate 0 09/21/21 20:05 Pain Level 2 09/22/21 08:12 Comment chux changed. QBL this time is 65ml. Fundus firm @. 09/21/21 04:55 Intake & Output 09/21/21 09/21/21 09/22/21 11:59 23:59 11:59 Intake Total 1589.55 / 1689.55 100 / 1689.55 Output Total 1800 / 2600 800 / 2600 Balance -210.45 / -910.45 -700 / -910.45 Intake: IV 1389.55 / 1389.55 Oral 200 / 300 100 / 300 Output: Urine 800 / 1600 800 / 1600 Emesis 800 / 800 Blood 200 / 200 Other: Urine Color Yellow Pale Pale Yellow Yellow Urine Appearance Clear
== END 2021-09-22 10:10 | disposition home or self-care (01) | DRG 807 ==
PROVIDERS: Admitting Provider Advanced Practice Midwife; Visit Provider Advanced Practice Midwife
DX: O36.0930 Maternal care for other rhesus isoimmunization, third trimester, not applicable or unspecified (principal); Z37.0 Single live birth; Z3A.40 40 weeks gestation of pregnancy; O70.0 First degree perineal laceration during delivery; O99.284 Endocrine, nutritional and metabolic diseases complicating childbirth; D35.2 Benign neoplasm of pituitary gland; R11.2 Nausea with vomiting, unspecified
CPT/HCPCS: 85027; 86850; 86900; 86901; 87635; J1100; J1200; J2210; J2310; J2405; J3010; J3490

== ENCOUNTER 2022-05-26 11:12 | Outpatient (REF) | payer OTHER, SELFPAY ==
--- NOTE | 2022-05-26 10:00 | PAPFT_PTH ---
PATIENT: Dipti Gleason LOC: [facility] U#:[id number] AGE/SX: 26/F ROOM: RE05/26/[address]: Alexia Mckenzie CNM : 1995 BED: DIS: 05/26/2022 SPEC #: [id number] RECD: 05/26/22 12:50 STATUS: JORGE REQ #: [id number] SHIVAM: 05/26/22 10:[address]: Alexia Mckenzie DEPT: [facility] Cytology RECD BY: Jeannie Brown Tissues: 1 - CX/ENDOCX FOR PAP SMEARS Procedures: PAP THIN PREP/UVM Screening Comments: [id number]
== END 2022-05-26 11:13 | disposition home or self-care (01) ==
LOC: LBN 11:12
PROVIDERS: Visit Provider Advanced Practice Midwife
DX: Z12.4 Encounter for screening for malignant neoplasm of cervix (principal)
CPT/HCPCS: 88142

== ENCOUNTER 2023-02-09 10:48 | Outpatient (REF) | payer OTHER, SELFPAY | END 2023-02-09 10:49 | disposition home or self-care (01) | LOC: LBN 10:48 | PROVIDERS: PCP Obstetrics & Gynecology; Visit Provider Obstetrics & Gynecology | DX: N89.8 Other specified noninflammatory disorders of vagina (principal) | CPT/HCPCS: 87480; 87510; 87660 ==

== ENCOUNTER 2023-08-24 11:08 | Outpatient (REF) | payer OTHER, SELFPAY | END 2023-08-24 11:09 | disposition home or self-care (01) | LOC: LBN 11:08 | PROVIDERS: PCP Obstetrics & Gynecology; Visit Provider Advanced Practice Midwife | DX: B37.31 Acute candidiasis of vulva and vagina (principal); N89.8 Other specified noninflammatory disorders of vagina | CPT/HCPCS: 87480; 87510; 87660 ==